=== PATIENT | male | born 1965 | race Caucasian/White ===

== ENCOUNTER 2018-08-21 12:18 | Inpatient (IN) | payer SELFPAY ==
[~2018-08-21] VITALS: Ht 182.9 cm; Wt 68.1 kg
[2018-08-21] VITALS (15 sets, daily range): BP systolic 46–146; BP diastolic 35–111
[~2018-08-21 12:18] MED LIST: ATOR10TA60 PO; LISI2.5T PO; METO-239 PO; PRED20TA PO
[2018-08-21] MEDS ORDERED: IPRATRPIUM/ALBUTEROL 0.5/2.5MG 3 ML NEBU. NEB ONE (12:30)
[2018-08-21] MEDS ORDERED: ASPIRIN CHEWABLE 81 MG TABLET. PO ONE (12:45)
[2018-08-21 12:47] LABS: BASO # 0.1 x10^3/uL (0.0-0.2); BASO % 1 % (0-3); EOS # 0.3 x10^3/uL (0.0-0.7); EOS % 2 % (0-3); LYMPH # 4.6 x10^3/uL (1.0-4.8); LYMPH % 31 % (24-48); MEAN CORPUSCULAR HEMOGLOBIN 31 pg (25-35); MEAN CORPUSCULAR HGB CONC 32 g/dL (31-37); MEAN CORPUSCULAR VOLUME 96 fL (79-100); MONO # 0.6 x10^3/uL (0.0-1.1); MONO % 4 % (0-9); NEUT # 9.2 x10^3uL (1.8-7.7); NEUT % 62 % (31-73); PLATELET COUNT 241 x10^3/uL (140-400); RED BLOOD COUNT 4.91 x10^6/uL (4.30-5.70); RED CELL DISTRIBUTION WIDTH 14.8 % (11.5-14.5); WHITE BLOOD COUNT 14.9 x10^3/uL (4.0-11.0)
[2018-08-21] MEDS ORDERED: PROPOFOL 50 ML IV ONE (12:50)
--- NOTE | 2018-08-21 12:50 | RAD ---
PORTABLE CHEST 1V History: SOA. Comparison with June 27, 2018. The heart size is slightly larger than the prior study. Central vasculature is thickened. There are mixed infiltrates in both lungs, predominantly lung bases. No evidence of pneumothorax. No pleural effusion. IMPRESSION: Development of bilateral pulmonary infiltrates and edema greater in the lung bases. There is also central vascular congestion. Findings may indicate congestive failure. Electronically signed by: Grayson Juárez MD (08/21/2018 12:47 PM) [id number]
[2018-08-21 12:56] LABS: CALCIUM 9.1 mg/dL (8.5-10.1); CREATININE 1.6 mg/dL (0.7-1.3); GFR 45.3; POTASSIUM 3.8 mmol/L (3.5-5.1); PROTHROMBIN TIME PATIENT 13.9 SEC (11.7-14.0)
[2018-08-21] MEDS ORDERED: FUROSEMIDE 40 MG/4 ML VIAL. IVP ONE ×2 (13:00→20:00)
[2018-08-21] MEDS ORDERED: PIPERACILLIN/TAZOBACTAM 3.375 GM in IV NORMAL SALINE 50ML 50 ML IV ONE (13:00)
[2018-08-21] MEDS ORDERED: PROPOFOL 10 MG/ML (20ML) VIAL. IV ONE (13:00)
[2018-08-21 13:02] LABS: ALBUMIN 4.4 g/dL (3.4-5.0); ALBUMIN/GLOBULIN RATIO 1.4 (1.0-1.7); TOTAL BILIRUBIN 0.4 mg/dL (0.2-1.0); TOTAL PROTEIN 7.6 g/dL (6.4-8.2)
--- NOTE | 2018-08-21 13:09 | PHYS DOC ---
Past Medical History Past Medical History: COPD Past Surgical History: No Surgical History Alcohol Use: None Drug Use: None Adult General Chief Complaint Chief Complaint: DYSPNEA/RESPIRATOY DISTRESS HPI HPI Patient is a 53 year old male brought in by eminence with acute shortness of breath a few minutes prior to arrival patient was sweaty and history was limited by the severity of the patient's illness he did briefly deny any chest pain to me is living in a retirement house he was having stool on arrival to the emergency room. Review of Systems Review of Systems Limited by acuity Current Medications Current Medications Current Medications Medications (Trade) Dose Ordered Sig/Alexandra Start Time Stop Time Status Last Admin Dose Admin Albuterol/ Ipratropium (Duoneb) 3 ml 1X ONCE 08/21/18 12:30 08/21/18 12:33 DC Aspirin (Aspirin) 300 mg 1X ONCE 08/21/18 13:15 08/21/18 13:16 Aspirin (Children'S Aspirin) 324 mg 1X ONCE 08/21/18 12:45 08/21/18 12:46 DC Furosemide (Lasix) 40 mg 1X ONCE 08/21/18 13:00 08/21/18 13:01 DC Piperacillin Sod/ Tazobactam Sod 3.375 gm/Sodium Chloride 50 ml @ 100 mls/hr 1X ONCE 08/21/18 13:00 08/21/18 13:29 Propofol (Diprivan) 200 mg 1X ONCE 08/21/18 13:00 08/21/18 13:01 DC Allergies Allergies Allergies Coded Allergies Type Severity Reaction Last Updated Verified No Known Drug Allergies 05/19/18 No Physical Exam Physical Exam Constitutional: Well developed, critically ill sweaty and diaphoretic: Extremities altered mental status HENT: Normocephalic, atraumatic, bilateral external ears normal, oropharynx moist, no oral exudates, nose normal. [] Eyes: PERRLA, EOMI, conjunctiva normal, no discharge. [] Neck: Normal range of motion, no tenderness, supple, no stridor. [] Cardiovascular not tachycardic murmur exam was very challenging for me due to lung findings Lungs & Thorax: Diffuse wheezing tachypnea use of accessory muscles Abdomen: Bowel sounds normal, soft, no tenderness, no masses, no pulsatile masses. [] Skin: Diaphoretic see above Back: Not examined Extremities: Cool extremities Neurologic: Moving all extremities but the mental status is decreased eyes open to voice only does follow commands Psychologic: Unable to assess Current Patient Data Vital Signs Vital Signs Date Time Temp Pulse Resp B/P (MAP) Pulse Ox O2 Delivery O2 Flow Rate FiO2 08/21/18 12:18 97.6 66 31 136/93 (107) 76 Nasal Cannula 6.0 97.6 Lab Values Laboratory Tests Test 08/21/18 12:30 08/21/18 12:33 White Blood Count 14.9 x10^3/uL (4.0-11.0) H Red Blood Count 4.91 x10^6/uL (4.30-5.70) Hemoglobin 15.0 g/dL (13.0-17.5) Hematocrit 47.0 % (39.0-53.0) Mean Corpuscular Volume 96 fL (79-100) Mean Corpuscular Hemoglobin 31 pg (25-35) Mean Corpuscular Hemoglobin Concent 32 g/dL (31-37) Red Cell Distribution Width 14.8 % (11.5-14.5) H Platelet Count 241 x10^3/uL (140-400) Neutrophils (%) (Auto) 62 % (31-73) Lymphocytes (%) (Auto) 31 % (24-48) Monocytes (%) (Auto) 4 % (0-9) Eosinophils (%) (Auto) 2 % (0-3) Basophils (%) (Auto) 1 % (0-3) Neutrophils # (Auto) 9.2 x10^3uL (1.8-7.7) H Lymphocytes # (Auto) 4.6 x10^3/uL (1.0-4.8) Monocytes # (Auto) 0.6 x10^3/uL (0.0-1.1) Eosinophils # (Auto) 0.3 x10^3/uL (0.0-0.7) Basophils # (Auto) 0.1 x10^3/uL (0.0-0.2) Prothrombin Time 13.9 SEC (11.7-14.0) Prothrombin Time INR 1.1 (0.8-1.1) Sodium Level 141 mmol/L (136-145) Potassium Level 3.8 mmol/L (3.5-5.1) Chloride Level 102 mmol/L (98-107) Carbon Dioxide Level 20 mmol/L (21-32) L Anion Gap 19 (6-14) H Blood Urea Nitrogen 17 mg/dL (8-26) Creatinine 1.6 mg/dL (0.7-1.3) H Estimated GFR (Cockcroft-Gault) 45.3 BUN/Creatinine Ratio 11 (6-20) Glucose Level 296 mg/dL (70-99) H Calcium Level 9.1 mg/dL (8.5-10.1) Total Bilirubin 0.4 mg/dL (0.2-1.0) Aspartate Amino Transferase (AST) 40 U/L (15-37) H Alanine Aminotransferase (ALT) 42 U/L (16-63) Alkaline Phosphatase 94 U/L (46-116) Total Protein 7.6 g/dL (6.4-8.2) Albumin 4.4 g/dL (3.4-5.0) Albumin/Globulin Ratio 1.4 (1.0-1.7) POC Troponin I 0.05 ng/ml (<0.08) Laboratory Tests 08/21/18 12:30 Laboratory Tests 08/21/18 12:30 EKG EKG []EKG does show a left bundle branch block is a sinus rhythm I was concerned about the ST segment in V3 that is prominent it probably does not meet SGARBOSSA criteria however otherwise no definite ST elevation when compared with prior EKG from June 28, 2018 the left bundle branch block was also present I did review this EKG approximately 10 minutes after it was done with nurse practitioner Lula from cardiology who also showed it to Dr. Barba Radiology/Procedures Radiology/Procedures [] Impressions: Chest shows bilateral pulmonary edema repeat chest x-ray after intubation does show appropriate placement of the endotracheal tube as well as worsening pulmonary edema Course & Med Decision Making Course & Med Decision Making Critical care time was 55 minutes exclusive of procedures for management of acute pulmonary edema acute hypoxemic respiratory failure metabolic acidosis .Pertinent Labs and Imaging studies reviewed. (See chart for details) []Intubation note: Emergent procedure hypoxemic respiratory failure with severe acidosis etomidate and rocuronium Mac 4 blade grade 2 view confirmed with chest x-ray and end-tidal CO2 In summary this is a 53-year-old male known CHF EF of 40-45% noncompliant also COPD patient who is presenting with acute shortness of breath no chest pain however signs of severe pulmonary edema I suspect also cardiogenic shock due to the long findings the extremity and skin findings as well as the pH severe critical illness overall October from cardiology was at the bedside plan to do a stat echocardiogram TO EVAL THE PT'S KNOWN MRCristóbal ALSO per October given the underlying left bundle it is difficult to assess for acute ischemia so we will cycle troponins up with the patient intensive care unit for diuresis and very close monitoring. I did review with him I was concerned about the possibility of an acute ischemic event and we will be cycle troponins very closely. Lasix rectal aspirin given in the emergency room propofol for sedation after intubation I did give a dose of Zosyn the emergency room I think pneumonia is much less likely based on the clinical symptoms admitted to Dr. Lucas we discussed the case at 1 PM Ervin Disclaimer Ellion Disclaimer This electronic medical record was generated, in whole or in part, using a voice recognition dictation system. Departure Departure Impression: Primary Impression: Pulmonary edema Disposition: ADMITTED INPATIENT Admitting Physician: Other Condition: CRITICAL Referrals: NO PCP (PCP) PRIETO TALLEY MD Aug 21, 2018 13:09
[2018-08-21] MEDS ORDERED: ASPIRIN RECTAL 300 MG SUPP. PR ONE (13:15)
[2018-08-21] MEDS ORDERED: ACETAMINOPHEN 325 MG TABLET. PO PRN (13:15)
[2018-08-21] MEDS ORDERED: 0.9 % SODIUM CHLORIDE 10 ML DISP.SYRIN. IV PRN (13:15)
[2018-08-21] MEDS ORDERED: MORPHINE SULFATE 2 MG/ML VIAL. IV PRN ×2 (13:15→14:30)
[2018-08-21] MEDS ORDERED: LACTULOSE 20 GM/30 ML SOLUTION. PO PRN (13:15)
[2018-08-21] MEDS ORDERED: HYDROcodone/APAP 5/325MG 1 TAB TABLET PO PRN (13:15)
[2018-08-21] MEDS ORDERED: ONDANSETRON PF 4 MG/2 ML VIAL. IV PRN (13:15)
--- NOTE | 2018-08-21 13:24 | PDOC2 ---
CARDIAC CONSULT DATE OF CONSULT Date of Consult DATE: 08/21/18 TIME: 12:59 REASON FOR CONSULT Reason for Consult: CHF REFERRING PHYSICIAN Referring Physician: Suze SOURCE Source: Chart review HISTORY OF PRESENT ILLNESS HISTORY OF PRESENT ILLNESS This is a 53 yo male admitted fo complains of shortness of breath. He lives in a [facility] house and it was unclear if he or somebody else called for help but upon arrival he was significantly SOA and had accidental BM. He was tachypneic and was struggling to breath prompting intubation. He is known for heavy tobacco use, cardiomyopathy, severe MR and COPD. This is the third time he has been admitted to [facility] this year and all those times including today he has been noted with failure to comply with treatment regimen and has not been taking the medications recommended previously. There was no noted complains of chest pain and no significant changes to his EKG by comparison. PAST MEDICAL HISTORY Cardiovascular: CHF, HTN, Hyperlipidemia, Other (Cardiomyopathy; ) Pulmonary: COPD CENTRAL NERVOUS SYSTEM: Other (No pertinent history) GI: No pertinent hx Heme/Onc: No pertinent hx Hepatobiliary: No pertinent hx Psych: No pertinent hx Musculoskeletal: Osteoarthritis Rheumatologic: No pertinent hx ENT: No pertinent hx Renal/: No pertinent hx Endocrine: No pertinent hx Dermatology: No pertinent hx PAST SURGICAL HISTORY Past Surgical History: No pertinent history FAMILY HISTORY Family History noncontributory SOCIAL HISTORY Smoke: 2 packs per day ALCOHOL: occassional Drugs: None Lives: Alone ([facility] house) ALLERGIES ALLERGIES: Coded Allergies: No Known Drug Allergies (Unverified , 05/19/18) ROS Review of System unreliable, intubated PHYSICAL EXAM General: Other (sedated) HEENT: Atraumatic, Mucous membr. moist/pink Lungs: Other (basilar crackles, diminished, intubated, vent) Heart: Regular rate (SR wth LBBB with first degree AV block), Other (distnat heart sounds 3/6 systolic apical murmur; S3) Abdomen: Soft, No tenderness Extremities: No cyanosis, No edema Skin: No breakdown, No significant lesion, Other (tatoos) Neuro: Sensation intact Psych/Mental Status: Other (sedated) MUSCULOSKELETAL: Osteoarthritic changes both hands LABS Lab: Laboratory Tests Test 08/21/18 12:30 08/21/18 12:33 White Blood Count 14.9 x10^3/uL (4.0-11.0) Red Blood Count 4.91 x10^6/uL (4.30-5.70) Hemoglobin 15.0 g/dL (13.0-17.5) Hematocrit 47.0 % (39.0-53.0) Mean Corpuscular Volume 96 fL (79-100) Mean Corpuscular Hemoglobin 31 pg (25-35) Mean Corpuscular Hemoglobin Concent 32 g/dL (31-37) Red Cell Distribution Width 14.8 % (11.5-14.5) Platelet Count 241 x10^3/uL (140-400) Neutrophils (%) (Auto) 62 % (31-73) Lymphocytes (%) (Auto) 31 % (24-48) Monocytes (%) (Auto) 4 % (0-9) Eosinophils (%) (Auto) 2 % (0-3) Basophils (%) (Auto) 1 % (0-3) Neutrophils # (Auto) 9.2 x10^3uL (1.8-7.7) Lymphocytes # (Auto) 4.6 x10^3/uL (1.0-4.8) Monocytes # (Auto) 0.6 x10^3/uL (0.0-1.1) Eosinophils # (Auto) 0.3 x10^3/uL (0.0-0.7) Basophils # (Auto) 0.1 x10^3/uL (0.0-0.2) Prothrombin Time 13.9 SEC (11.7-14.0) Prothromb Time International Ratio 1.1 (0.8-1.1) Sodium Level 141 mmol/L (136-145) Potassium Level 3.8 mmol/L (3.5-5.1) Chloride Level 102 mmol/L (98-107) Carbon Dioxide Level 20 mmol/L (21-32) Anion Gap 19 (6-14) Blood Urea Nitrogen 17 mg/dL (8-26) Creatinine 1.6 mg/dL (0.7-1.3) Estimated GFR (Cockcroft-Gault) 45.3 BUN/Creatinine Ratio 11 (6-20) Glucose Level 296 mg/dL (70-99) Calcium Level 9.1 mg/dL (8.5-10.1) Bedside Troponin I 0.05 ng/ml (<0.08) ECHOCARDIOGRAM ECHOCARDIOGRAM <Conclusion> The Ejection Fraction is 40-45%. The systolic function is mildly impaired. Septal motion consistent with conduction abnormality, otherwise there is mild global hypokinesis. Doppler and Color-flow revealed moderate to severe mitral regurgitation. Doppler and Color Flow revealed moderate tricuspid regurgitation with an estimated PAP of 53 mmHg. The IVC is dilated and collapses <50% with inspiration. DATE: 05/21/18 1322 ASSESSMENT/PLAN ASSESSMENT/PLAN 1. Acute on chronic respiratory failure with acute CHF and AECOPD 2. Moderate to Severe MR: prior TTE 3. Cardiomyopathy: last EF noted at 40% 4. Acute on chronic systolic CHF: multifactorial with noncompliance, MR and COPD. 5. Heavy tobaccoism 6. HTN: controlled 7. Severe noncompliance. Recommendations 1. Consult pulmonary, currently intubated with vent 2. Trend troponin, lipids. 3. Ischemic workup when more stable. 4. TTE, A1C, pro NT BNP, Mg. 5. ASA. lasix therapy. 6. Smoking cessation JAZMINE BLEVINS APRN Aug 21, 2018 13:24
--- NOTE | 2018-08-21 13:25 | RAD ---
CHEST AP ONLY History: intubation. Endotracheal tube has been placed with tip 5.5 cm above the rios. Endogastric tube is seen extending toward the left upper quadrant, tip not included. There has been progressive worsening of infiltrates in both lungs since the prior study of 12:33 PM. Cardiac silhouette is stable. Lung apices not completely included. No evidence of pneumothorax. No pleural effusion. Ill-definition of central pulmonary vasculature persists. IMPRESSION: 1. Endotracheal tube has been placed with tip 5.5 cm above the rios. 2. Progressive worsening of infiltrates/edema in both lungs. Electronically signed by: Grayson Juárez MD (08/21/2018 1:22 PM) [facility]
[2018-08-21] MEDS: LISINOPRIL 5 MG TABLET. PO SCH (14:00)
[2018-08-21] MEDS ORDERED: ROCURONIUM 50 MG/5 ML VIAL. ONE (14:01)
[2018-08-21] MEDS ORDERED: ETOMIDATE 20 MG/10 ML VIAL. IV ONE (14:01)
[2018-08-21 14:30] LABS: PCO2 ABG 45 mmHg (35-46)
[2018-08-21] MEDS ORDERED: POLYVINYL ALCOHOL 1.4% OPHTH SOLUTION 15ML BOTTLE. OU PRN (14:30)
[2018-08-21] MEDS ORDERED: fentaNYL PF VIAL 100 MCG/2 ML VIAL IV PRN ×2 (14:30)
[2018-08-21] MEDS ORDERED: PROPOFOL 100 ML IV PRN (14:30)
[2018-08-21] MEDS ORDERED: MORPHINE SULFATE 4 MG/ML VIAL. IV PRN (14:30)
[2018-08-21 14:31] LABS: BASE EXCESS ABG -16 mmol/L (-3-3); FIO2 ABG 100%; HCO3 ABG 14 mmol/L (21-28); PO2 ABG 76 mmHg (75-108); SAT O2 ABG 90 % (92-99)
--- NOTE | 2018-08-21 14:36 | EKG ---
[facility] [address] [place] [address] Test Date: 2018-08-21 Test Time: 12:23:31 Pat Name: RICHIE VALLADARES Department: Room: 112 1 Gender: M Hand Blocker: : 1965 Requested By: PRIETO TALLEY Order Number: [id number] Reading MD: Stanislav Mendes MD Measurements Intervals Gravelly Rate: 82 P: [place]: QRS: 8 QRSD: 170 T: 147 QT: 418 QTc: 491 Interpretive Statements SINUS RHYTHM LBBB Electronically Signed On 08-25-2018 14:57:05 CDT by Stanislav Mendes MD
--- NOTE | 2018-08-21 14:37 | PDOC1 ---
History and Physical Date of Admission Date of Admission 08/21/2018 Identification/Chief Complaint Chief Complaint I cannot breathe Problems: (1) Acute hypoxemic respiratory failure (2) COPD (chronic obstructive pulmonary disease) Source Source: Chart review, Unable to obtain due to (patient is currently intubated) History of Present Illness History of Present Illness History and physical gathered from review of his chart and report from ER physician. Patient is currently on sedation and on mechanical ventilation. Patient is a 53-year-old gentleman with past medical history of COPD and mitral regurgitation with chronic systolic dysfunction recent ejection fraction was recorded at 40% on his last admission June of this year. The patient came to the emergency department with shortness of breath, the patient's history is was very limited due to the acuity of his presentation. He referred to the emergency department physician that he felt sweaty and that he could not catch his breath. The patient has history of [place] as per enrollment consultant and he has not follow-up due to financial constraints. The patient apparently has not been adherent to his medications which was reported to the emergency department nurses prior to his intubation. The patient is currently being seen in the ICU he is sedated and on mechanical ventilation. He does not seem to be in acute distress. He received diuresis in the emergency department after his chest x- ray showed evidence of pulmonary edema which probably explain the acuity of his presentation. We'll continue to monitor the patient will consult cardiology and pulmonary in order to help us with the care of the patient Past Medical History Cardiovascular: CHF, HTN, Hyperlipidemia, Other (Cardiomyopathy; ) Pulmonary: COPD CENTRAL NERVOUS SYSTEM: Other (No pertinent history) GI: No pertinent hx Heme/Onc: No pertinent hx Hepatobiliary: No pertinent hx Psych: No pertinent hx Rheumatologic: No pertinent hx ENT: No pertinent hx Renal/: No pertinent hx Endocrine: No pertinent hx Dermatology: No pertinent hx Past Surgical History Past Surgical History: No pertinent history Family History Family History: Hypertension Social History Smoke: 2 packs per day ALCOHOL: occassional Drugs: None Current Problem List Problem List Problems Medical Problems: (1) Pulmonary edema Status: Acute Current Medications Current Medications Current Medications Medications (Trade) Dose Ordered Sig/Alexandra Start Time Stop Time Status Last Admin Dose Admin Acetaminophen (Tylenol) 650 mg PRN Q6HRS PRN 08/21/18 13:15 Acetaminophen/ Hydrocodone Bitart (Lortab 5/325) 1 tab PRN Q4HRS PRN 08/21/18 13:15 Albuterol/ Ipratropium (Duoneb) 3 ml 1X ONCE 08/21/18 12:30 08/21/18 12:33 DC Artificial Tears (Artificial Tears) 1 drop PRN Q1HR PRN 08/21/18 14:30 Aspirin (Aspirin) 300 mg 1X ONCE 08/21/18 13:15 08/21/18 13:16 DC 08/21/18 13:09 300 MG Aspirin (Children'S Aspirin) 324 mg 1X ONCE 08/21/18 12:45 08/21/18 12:46 DC Atorvastatin Calcium (Lipitor) 10 mg QHS 08/21/18 21:00 Chlorhexidine Gluconate (Peridex) 15 ml BID 08/21/18 21:00 Etomidate (Amidate) 20 mg STK-MED ONCE 08/21/18 14:01 08/21/18 14:02 DC Famotidine (Pepcid Vial) 20 mg BID 08/21/18 21:00 Fentanyl Citrate (Fentanyl 2ml Vial) 50 mcg PRN Q1HR PRN 08/21/18 14:30 Furosemide (Lasix) 40 mg 1X ONCE 08/21/18 20:00 08/21/18 20:01 Heparin Sodium (Porcine) (Heparin Sodium) 5,000 unit Q12HR 08/21/18 14:00 Info (Icu Electrolyte Protocol) 1 ea DAILY 08/22/18 09:00 Lactulose (Lactulose) 20 gm PRN Q12HR PRN 08/21/18 13:15 Lisinopril (Prinivil) 2.5 mg DAILY 08/21/18 14:00 Lorazepam (Ativan) 0.5 mg PRN Q6HRS PRN 08/21/18 13:15 Metoprolol Succinate (Toprol Xl) 25 mg DAILY 08/22/18 09:00 Morphine Sulfate (Morphine Sulfate) 4 mg PRN Q1HR PRN 08/21/18 14:30 Ondansetron HCl (Zofran) 4 mg PRN Q6HRS PRN 08/21/18 13:15 Piperacillin Sod/ Tazobactam Sod 3.375 gm/Sodium Chloride 50 ml @ 100 mls/hr 1X ONCE 08/21/18 13:00 08/21/18 13:29 DC 08/21/18 13:07 100 MLS/HR Propofol 100 ml @ 2.205 mls/ hr CONT PRN 08/21/18 14:30 Propofol (Diprivan) 200 mg 1X ONCE 08/21/18 13:00 08/21/18 13:01 DC 08/21/18 13:00 200 MG Rocuronium [place] (Zemuron) 50 mg STK-MED ONCE 08/21/18 14:01 08/21/18 14:02 DC Sodium Chloride (Normal Saline Flush) 3 ml QSHIFT PRN 08/21/18 13:15 Allergies Allergies Allergies Coded Allergies Type Severity Reaction Last Updated Verified No Known Drug Allergies 05/19/18 No ROS Review of System Unable to obtain due to sedation Physical Exam Physical Exam GEN.: No apparent distress. Sedated and on mechanical ventilation HEENT: Head is normocephalic, atraumatic NECK: Supple. LUNGS: Clear to auscultation. Mild crackles over the lower lung beyer HEART: RRR, S1, S2 present. Peripheral pulses intact ABDOMEN: Soft, nontender. Positive bowel sounds. EXTREMITIES: Without any cyanosis. NEUROLOGIC: Patient currently sedated he is moving all extremities PSYCHIATRIC: Unable to assess due to sedation SKIN: No ulcerations Vitals Vitals Vital Signs Date Time Temp Pulse Resp B/P (MAP) Pulse Ox O2 Delivery O2 Flow Rate FiO2 08/21/18 14:00 Ventilator 08/21/18 12:18 97.6 66 31 136/93 (107) 76 6.0 97.6 Labs Labs Laboratory Tests Test 08/21/18 12:30 08/21/18 12:33 White Blood Count 14.9 x10^3/uL (4.0-11.0) Red Blood Count 4.91 x10^6/uL (4.30-5.70) Hemoglobin 15.0 g/dL (13.0-17.5) Hematocrit 47.0 % (39.0-53.0) Mean Corpuscular Volume 96 fL (79-100) Mean Corpuscular Hemoglobin 31 pg (25-35) Mean Corpuscular Hemoglobin Concent 32 g/dL (31-37) Red Cell Distribution Width 14.8 % (11.5-14.5) Platelet Count 241 x10^3/uL (140-400) Neutrophils (%) (Auto) 62 % (31-73) Lymphocytes (%) (Auto) 31 % (24-48) Monocytes (%) (Auto) 4 % (0-9) Eosinophils (%) (Auto) 2 % (0-3) Basophils (%) (Auto) 1 % (0-3) Neutrophils # (Auto) 9.2 x10^3uL (1.8-7.7) Lymphocytes # (Auto) 4.6 x10^3/uL (1.0-4.8) Monocytes # (Auto) 0.6 x10^3/uL (0.0-1.1) Eosinophils # (Auto) 0.3 x10^3/uL (0.0-0.7) Basophils # (Auto) 0.1 x10^3/uL (0.0-0.2) Prothrombin Time 13.9 SEC (11.7-14.0) Prothromb Time International Ratio 1.1 (0.8-1.1) Sodium Level 141 mmol/L (136-145) Potassium Level 3.8 mmol/L (3.5-5.1) Chloride Level 102 mmol/L (98-107) Carbon Dioxide Level 20 mmol/L (21-32) Anion Gap 19 (6-14) Blood Urea Nitrogen 17 mg/dL (8-26) Creatinine 1.6 mg/dL (0.7-1.3) Estimated GFR (Cockcroft-Gault) 45.3 BUN/Creatinine Ratio 11 (6-20) Glucose Level 296 mg/dL (70-99) Lactic Acid Level 8.1 mmol/L (0.4-2.0) Calcium Level 9.1 mg/dL (8.5-10.1) Magnesium Level 2.5 mg/dL (1.8-2.4) Total Bilirubin 0.4 mg/dL (0.2-1.0) Aspartate Amino Transf (AST/SGOT) 40 U/L (15-37) Alanine Aminotransferase (ALT/SGPT) 42 U/L (16-63) Alkaline Phosphatase 94 U/L (46-116) Troponin I Quantitative 0.065 ng/mL (0.000-0.055) WY-Lkm-C-Type Natriuretic Peptide 3115 pg/mL (0-124) Total Protein 7.6 g/dL (6.4-8.2) Albumin 4.4 g/dL (3.4-5.0) Albumin/Globulin Ratio 1.4 (1.0-1.7) Bedside Troponin I 0.05 ng/ml (<0.08) Laboratory Tests Test 08/21/18 12:30 08/21/18 12:33 White Blood Count 14.9 x10^3/uL (4.0-11.0) Red Blood Count 4.91 x10^6/uL (4.30-5.70) Hemoglobin 15.0 g/dL (13.0-17.5) Hematocrit 47.0 % (39.0-53.0) Mean Corpuscular Volume 96 fL (79-100) Mean Corpuscular Hemoglobin 31 pg (25-35) Mean Corpuscular Hemoglobin Concent 32 g/dL (31-37) Red Cell Distribution Width 14.8 % (11.5-14.5) Platelet Count 241 x10^3/uL (140-400) Neutrophils (%) (Auto) 62 % (31-73) Lymphocytes (%) (Auto) 31 % (24-48) Monocytes (%) (Auto) 4 % (0-9) Eosinophils (%) (Auto) 2 % (0-3) Basophils (%) (Auto) 1 % (0-3) Neutrophils # (Auto) 9.2 x10^3uL (1.8-7.7) Lymphocytes # (Auto) 4.6 x10^3/uL (1.0-4.8) Monocytes # (Auto) 0.6 x10^3/uL (0.0-1.1) Eosinophils # (Auto) 0.3 x10^3/uL (0.0-0.7) Basophils # (Auto) 0.1 x10^3/uL (0.0-0.2) Prothrombin Time 13.9 SEC (11.7-14.0) Prothromb Time International Ratio 1.1 (0.8-1.1) Sodium Level 141 mmol/L (136-145) Potassium Level 3.8 mmol/L (3.5-5.1) Chloride Level 102 mmol/L (98-107) Carbon Dioxide Level 20 mmol/L (21-32) Anion Gap 19 (6-14) Blood Urea Nitrogen 17 mg/dL (8-26) Creatinine 1.6 mg/dL (0.7-1.3) Estimated GFR (Cockcroft-Gault) 45.3 BUN/Creatinine Ratio 11 (6-20) Glucose Level 296 mg/dL (70-99) Lactic Acid Level 8.1 mmol/L (0.4-2.0) Calcium Level 9.1 mg/dL (8.5-10.1) Magnesium Level 2.5 mg/dL (1.8-2.4) Total Bilirubin 0.4 mg/dL (0.2-1.0) Aspartate Amino Transf (AST/SGOT) 40 U/L (15-37) Alanine Aminotransferase (ALT/SGPT) 42 U/L (16-63) Alkaline Phosphatase 94 U/L (46-116) Troponin I Quantitative 0.065 ng/mL (0.000-0.055) DP-Bcv-Z-Type Natriuretic Peptide 3115 pg/mL (0-124) Total Protein 7.6 g/dL (6.4-8.2) Albumin 4.4 g/dL (3.4-5.0) Albumin/Globulin Ratio 1.4 (1.0-1.7) Bedside Troponin I 0.05 ng/ml (<0.08) VTE Prophylaxis Ordered VTE Prophylaxis Devices: No VTE Pharmacological Prophylaxi: Yes Assessment/Plan Assessment/Plan Acute hypoxemic respiratory failure secondary to pulmonary edema Mildly elevated troponin most likely secondary to demand ischemia Type II non-STEMI, evidence of old left bundle branch block does not seem to be an acute coronary syndrome Acute on chronic COPD exacerbation tobacco abuse Tobacco abuse Nonadherence to treatment plan Acute on chronic congestive heart failure with systolic dysfunction last EF recorded at 40-45% Moderate to severe mitral regurgitation Plan Admit to ICU Ventilatory support Continue with sedation Consult cardiology Consult pulmonology Repeat labs in the a.m. Further recommendations based on the clinical course DVT prophylaxis with heparin POP PARKS MD Aug 21, 2018 14:37
[2018-08-21] MEDS: MIDAZOLAM 100mg/100ml NS BAG 100 ML IV PRN (15:54)
[2018-08-21] MEDS: NOREPINEPHRIN 8MG/250ML PREMIX 250 ML IV PRN ×2 (15:55→23:02)
[2018-08-21 16:15] LABS: BASE EXCESS ABG -3 mmol/L (-3-3); HCO3 ABG 23 mmol/L (21-28); PCO2 ABG 43 mmHg (35-46); PO2 ABG 362 mmHg (75-108); SAT O2 ABG 100 % (92-99)
[2018-08-21 16:41] LABS: FIO2 ABG 100
--- NOTE | 2018-08-21 16:56 | CARD ---
MR#: [id number] Date of Study: 08/21/2018 Ordering Physician: PRIETO TALLEY, Referring Physician: POP PARKS Tech: Poonam Chisholm APPROVED REPORT EXAM: Two-dimensional and M-mode echocardiogram with Doppler and color Doppler. Other Information Quality : FairHR: 138bpm INDICATION Respiratory Failure 2D DIMENSIONS Left Atrium(2D)4.6 (1.6-4.0cm)IVSd1.4 (0.7-1.1cm) Aortic Root(2D)3.1 (2.0-3.7cm)LVDd5.2 (3.9-5.9cm) LVOT Diameter2.3 (1.8-2.4cm)PWd1.2 (0.7-1.1cm) LVDs3.5 (2.5-4.0cm)FS (%) 32.7 % SV78.0 ml Aortic Valve AoV Peak Mark.121.1cm/sAoV VTI14.8cm AO Peak GR.5.9mmHgLVOT VTI 12.11cm AO Mean GR.2mmHg Mitral Valve MV E Txhocimw93.9cm/sMV E Peak Gr.123mmHg MV DECEL [id number] A Owdffext55.1cm/s E/A Ratio1.8 TDI Lateral E' P. V3.85cm/sMedial E' P. V3.18cm/s E/Lateral E'21.0E/Medial E'25.4 Tricuspid Valve TR P. Mgsaoyun326og/sRAP [id number] TR Peak Gr.[id number] LEFT VENTRICLE Technically difficult study with the patient on a ventilator. The Left Ventricle is borderline dilate d. There is mild concentric left ventricular hypertrophy. The left ventricular systolic function is m oderately decreased. The Ejection Fraction is 35-40%. There is global hypokinesis of the left ventric le. Transmitral Doppler flow pattern is Grade II-pseudonormal filling dynamics. RIGHT VENTRICLE The right ventricle is borderline dilated. There is normal right ventricular wall thickness. The righ t ventricular systolic function is normal. ATRIA The left atrium is moderately dilated. The right atrium size is normal. The interatrial septum is int act with no evidence for an atrial septal defect or patent foramen ovale as noted on 2-D or Doppler i maging. AORTIC VALVE The aortic valve is normal in structure and function. Doppler and Color Flow revealed trace aortic re gurgitation. There is no significant aortic valvular stenosis. MITRAL VALVE The mitral valve is normal in structure and function. There is no evidence of mitral valve prolapse. There is no mitral valve stenosis. Doppler and Color-flow revealed moderate mitral regurgitation. TRICUSPID VALVE The tricuspid valve is normal in structure and function. Doppler and Color Flow revealed mild tricusp id regurgitation with an estimated PAP of 39 mmHg. There is no tricuspid valve stenosis. PULMONIC VALVE The pulmonary valve is normal in structure and function. Doppler and Color Flow revealed no pulmonic valvular regurgitation. GREAT VESSELS The aortic root is normal in size. The IVC is normal in size and collapses <50% with inspiration. PERICARDIAL EFFUSION There is no evidence of significant pericardial effusion. Critical Notification Critical Value: No <Conclusion> Technically difficult study with the patient on a ventilator. The Left Ventricle is borderline dilated. The left ventricular systolic function is moderately decreased. The Ejection Fraction is 35-40%. There is global hypokinesis of the left ventricle. There is mild concentric left ventricular hypertrophy. There is no significant aortic valvular stenosis. Doppler and Color Flow revealed trace aortic regurgitation. Doppler and Color-flow revealed moderate mitral regurgitation. Doppler and Color Flow revealed mild tricuspid regurgitation with an estimated PAP of 39 mmHg. Signed by : Al Young MD Electronically Approved : 08/21/2018 16:55:42
--- NOTE | 2018-08-21 17:41 | NUR ---
Patient admitted at 1410. Room 112. Intubated, Dr. Barba at bedside. No new orders received from cardiology. RN called Dr. Beck to notify of consult. Order received for Solumedrol, Fentanyl SWING TENDER, Duoneb. Patient started on Levophed due to hypotension. Propofol gtt stopped, Versed gtt started. Patient has no family that RN is aware of, No one at bedside. Patient sedated, unable to answer admission questions.
[2018-08-21] MEDS: HEPARIN for SUB-Q USE 5,000 UNIT/ML VIAL. SQ SCH ×2 (17:43→20:49)
[2018-08-21] MEDS: IPRATRPIUM/ALBUTEROL 0.5/2.5MG 3 ML NEBU. NEB SCH (20:16)
[2018-08-21] MEDS: methylPREDNISolone SOD SUCC PF 40 MG/ML VIAL. IV SCH (20:48)
[2018-08-21] MEDS: ATORVASTATIN CALCIUM 10 MG TABLET. PO SCH (20:49)
[2018-08-21] MEDS: FAMOTIDINE 20 MG/2 ML VIAL IVP SCH (20:49)
[2018-08-21] MEDS ORDERED: CHLORHEXIDINE 0.12% 15 ML MOUTHWASH. MM SCH (21:00)
[2018-08-21 22:10] LABS: HEMOGLOBIN A1C 5.4 % (4.8-5.6)
[2018-08-22] VITALS (32 sets, daily range): BP systolic 92–127; BP diastolic 54–79
[2018-08-22] MEDS: MIDAZOLAM 100mg/100ml NS BAG 100 ML IV PRN ×2 (00:43→17:55)
[2018-08-22 04:02] LABS: BASO % 0 % (0-3); EOS % 0 % (0-3); HEMOGLOBIN 14.8 g/dL (13.0-17.5); LYMPH # 0.6 x10^3/uL (1.0-4.8); LYMPH % 4 % (24-48); MEAN CORPUSCULAR HEMOGLOBIN 30 pg (25-35); MEAN CORPUSCULAR HGB CONC 33 g/dL (31-37); MEAN CORPUSCULAR VOLUME 92 fL (79-100); MONO # 0.2 x10^3/uL (0.0-1.1); MONO % 1 % (0-9); NEUT % 95 % (31-73); PLATELET COUNT 240 x10^3/uL (140-400); RED BLOOD COUNT 4.89 x10^6/uL (4.30-5.70); RED CELL DISTRIBUTION WIDTH 13.8 % (11.5-14.5); WHITE BLOOD COUNT 13.8 x10^3/uL (4.0-11.0)
[2018-08-22 04:13] LABS: CALCIUM 8.9 mg/dL (8.5-10.1); GFR 77.9; POTASSIUM 3.7 mmol/L (3.5-5.1)
[2018-08-22 05:51] LABS: % BANDS 3 % (0-9); % LYMPHS 5 % (24-48); % MONOS 2 % (0-10); % SEGS 90 % (35-66)
[2018-08-22 05:52] LABS: PLT ESTIMATE ADEQUATE (ADEQUATE)
--- NOTE | 2018-08-22 06:49 | PDOC ---
Provider Note Provider Note [id number] acute resp fail acute sys chf ae of copd see orders. PEGGY ESTRADA MD Aug 22, 2018 06:49
[2018-08-22] MEDS: LISINOPRIL 5 MG TABLET. PO SCH (07:40)
[2018-08-22] MEDS: METOPROLOL SUCC 24HR ER 25 MG TAB.ER.24H. PO SCH (07:41)
--- NOTE | 2018-08-22 07:44 | CONS ---
DATE OF CONSULTATION: 08/22/2018 REASON FOR CONSULTATION: I was asked to see this 53-year-old gentleman for acute respiratory failure. HISTORY OF PRESENT ILLNESS: He is currently on the ventilator and he is not able to give me any information. All of the information was obtained from chart and nursing staff. He has history of COPD, mitral regurgitation and cardiomyopathy. He came to the Emergency Room with shortness of breath. He was intubated in the Emergency Room. He had a large amount of frothy secretion. Lasix was given. Currently, he is on ventilator assist controlled rate of 20, tidal volume 500, PEEP of 5, FiO2 of 40%. He has a small amount of ET tube secretion. He is on Levophed. PAST MEDICAL HISTORY: Cardiomyopathy, CHF, hypertension, and COPD. ALLERGIES: No known drug allergies. MEDICATIONS: Currently he is on Lasix, Solu-Medrol 40 mg IV every 12, Lipitor, Pepcid, DuoNeb, Levophed, fentanyl and Versed drip. SOCIAL HISTORY: Significant history of smoking, details are not known. FAMILY HISTORY: Hypertension per chart. REVIEW OF SYSTEMS: As mentioned as above. I have discussed the patient with RN. Other systems otherwise negative. PHYSICAL EXAMINATION: GENERAL: He is on ventilator and sedated. VITAL SIGNS: His O2 saturation is 99%, respiratory rate 20, heart rate 100, blood pressure 100/60, temperature 99.9. HEENT: Normocephalic, atraumatic. Pupils equal, round, reactive to light. He is orally intubated. Nose is clear. NECK: Positive JVD. No lymphadenopathy or thyromegaly. CARDIOVASCULAR: Regular rate and rhythm. PMI is nondisplaced. CHEST: Inspection is normal. LUNGS: There are bibasilar crackles, dullness at the bases. ABDOMEN: Soft. Bowel sounds are good. There is no mass. EXTREMITIES: There is no edema. LYMPHATICS: There is no lymphadenopathy. NEUROLOGIC: He is on the ventilator, sedated. SKIN: Warm. LABORATORY AND DIAGNOSTIC DATA: I reviewed the following lab data: Chest x-ray shows bilateral infiltrate, ET tube is in good position, COPD changes. ABG on arrival PH 7.1, pCO2 of 45, pO2 76 and on the ventilator yesterday pH 7.34, pCO2 of 43, pO2 of 362 on FiO2 of 100%. Sodium 142, potassium 3.7, chloride 103, CO2 of 25, glucose 140, BUN 21, creatinine 1. Lactic acid on admission 8.1, now 1.5. Troponin 0.065, last one was 0.045. BNP 3115. WBC 13.8, hemoglobin 14.8, platelet 240. IMPRESSION: 1. Acute hypoxemic respiratory failure, multifactorial in etiology including acute systolic congestive heart failure, acute bronchitis versus pneumonia, acute exacerbation of chronic obstructive pulmonary disease versus others. 2. Abnormal chest x-ray. 3. Acute systolic congestive heart failure. 4. Acute exacerbation of chronic obstructive pulmonary disease. 5. Tobacco habituation. 6. Hypotension, questionable etiology, could be septic versus cardiogenic versus others. 7. Lactic acidosis, resolved. PLAN AND RECOMMENDATIONS: 1. Continue ventilator support. Vent setting was reviewed. 2. Titrate FiO2 to keep O2 saturation 94%. 3. Keep intake less than output. Agree with Lasix. Monitor creatinine and potassium. 4. Continue antibiotic. 5. Continue Solu-Medrol 40 mg IV every 12. 6. Bronchodilator. 7. Start Lovenox for DVT prophylaxis. 8. Pepcid for stress ulcer prophylaxis. 9. Review ABG and portable chest x-ray. 10. Pressors to keep mean arterial pressure of 65. 11. Check procalcitonin. nasal swab for influenza A and B. 12. Follow up blood cultures. Send the sputum for Gram stain and culture. 13. Monitor respiratory status very closely. 14. The findings and recommendations were discussed with RN. Thank you very much for allowing me to participate in care of this very nice gentleman. PEGGY ESTRADA M.D. [facility] SHAH/jh JOB#: [id number] / [id number] CRISTINE
[2018-08-22] MEDS: NOREPINEPHRIN 8MG/250ML PREMIX 250 ML IV PRN ×2 (08:25→20:55)
--- NOTE | 2018-08-22 08:30 | RAD ---
AP view of the chest. Comparison: Chest radiograph dated 08/21/2018. Indication: MECHANICAL VENTILATION Findings: The patient is slightly rotated to the right. Unchanged endotracheal tube. The enteric tube is likely unchanged, although it was much more conspicuous on prior exam. Unchanged lung volume. Improvement in bilateral perihilar predominant opacities. No new consolidation. Unchanged pulmonary vasculature. No pleural effusion or pneumothorax. The cardiomediastinal silhouette and great vessels are unchanged. IMPRESSION: 1. Improvement in bilateral perihilar predominant opacities. No new consolidation. 2. Life support devices as above. Electronically signed by: Seamus Kumar MD (08/22/2018 8:27 AM) [facility]
[2018-08-22] MEDS: IPRATRPIUM/ALBUTEROL 0.5/2.5MG 3 ML NEBU. NEB SCH ×4 (08:48→20:28)
[2018-08-22] MEDS: FUROSEMIDE 40 MG/4 ML VIAL. IVP SCH (08:49)
[2018-08-22] MEDS: FAMOTIDINE 20 MG/2 ML VIAL IVP SCH ×2 (08:49→20:55)
[2018-08-22] MEDS: methylPREDNISolone SOD SUCC PF 40 MG/ML VIAL. IV SCH ×2 (08:50→20:55)
[2018-08-22] MEDS: ENOXAPARIN 40 MG/0.4 ML SYRINGE. SQ SCH (08:50)
[2018-08-22] MEDS: PIPERACILLIN/TAZOBACTAM 3.375 GM in IV NORMAL SALINE 50ML 50 ML IV SCH ×3 (08:51→17:27)
[2018-08-22] MEDS: ELECTROLYTE (ICU) PROTOCOL. MC SCH (09:00)
[2018-08-22 09:13] LABS: BASE EXCESS ABG -2 mmol/L (-3-3); HCO3 ABG 23 mmol/L (21-28); PCO2 ABG 39 mmHg (35-46); PO2 ABG 108 mmHg (75-108); SAT O2 ABG 98 % (92-99)
[2018-08-22 09:15] LABS: FIO2 ABG 40
--- NOTE | 2018-08-22 10:12 | NUR ---
FACULTY CO-SIGN I have reviewed the documentation by skilled nursing facilities professional: Addendum: 08/22/18 at 1012 by MONI THORPE RN Amended: Links added.
[2018-08-22 10:39] LABS: INFLUENZA A PATIENT NEGATIVE (NEGATIVE); INFLUENZA B PATIENT NEGATIVE (NEGATIVE)
--- NOTE | 2018-08-22 10:53 | PDOC ---
PROGRESS NOTES Chief Complaint Chief Complaint Acute hypoxemic respiratory failure secondary to pulmonary edema Mildly elevated troponin most likely secondary to demand ischemia Type II non-STEMI, evidence of old left bundle branch block does not seem to be an acute coronary syndrome Acute on chronic COPD exacerbation tobacco abuse Tobacco abuse Nonadherence to treatment plan Acute on chronic congestive heart failure with systolic dysfunction last EF recorded at 40-45% Moderate to severe mitral regurgitation Plan Ventilatory support Continue with sedation iAcute hypoxemic respiratory failure secondary to pulmonary edema Mildly elevated troponin most likely secondary to demand ischemia Type II non-STEMI, evidence of old left bundle branch block does not seem to be an acute coronary syndrome Acute on chronic COPD exacerbation tobacco abuse Tobacco abuse Nonadherence to treatment plan Acute on chronic congestive heart failure with systolic dysfunction last EF recorded at 40-45% Moderate to severe mitral regurgitation Plan Admit to ICU continue with diuresis Ventilatory support Continue with sedation follow cardiology recommendations Consult pulmonology Repeat labs in the a.m. Further recommendations based on the clinical course DVT prophylaxis with heparin Pulmonology recommendations greatly appreciated Vitals Vitals Vital Signs Date Time Temp Pulse Resp B/P (MAP) Pulse Ox O2 Delivery O2 Flow Rate FiO2 08/22/18 10:20 96 20 92/56 (68) 99 Ventilator 08/22/18 08:00 08/22/18 08:00 99.1 99.1 Physical Exam General: Other (sedated) Heart: Regular rate (SR wth LBBB with first degree AV block), Other (distnat heart sounds 3/6 systolic apical murmur; S3) Lungs: Clear Abdomen: Soft, No tenderness Extremities: No cyanosis, No edema Skin: No breakdown, No significant lesion, Other (tatoos) Labs LABS Laboratory Tests Test 08/21/18 12:29 08/21/18 12:30 08/21/18 12:33 08/21/18 16:00 O2 Saturation 90 % (92-99) 100 % (92-99) Arterial Blood pH 7.10 (7.35-7.45) 7.34 (7.35-7.45) Arterial Blood pCO2 at Patient Temp 45 mmHg (35-46) 43 mmHg (35-46) Arterial Blood pO2 at Patient Temp 76 mmHg (75-108) 362 mmHg (75-108) Arterial Blood HCO3 14 mmol/L (21-28) 23 mmol/L (21-28) Arterial Blood Base Excess -16 mmol/L (-3-3) -3 mmol/L (-3-3) FiO2 100% 100 White Blood Count 14.9 x10^3/uL (4.0-11.0) Red Blood Count 4.91 x10^6/uL (4.30-5.70) Hemoglobin 15.0 g/dL (13.0-17.5) Hematocrit 47.0 % (39.0-53.0) Mean Corpuscular Volume 96 fL (79-100) Mean Corpuscular Hemoglobin 31 pg (25-35) Mean Corpuscular Hemoglobin Concent 32 g/dL (31-37) Red Cell Distribution Width 14.8 % (11.5-14.5) Platelet Count 241 x10^3/uL (140-400) Neutrophils (%) (Auto) 62 % (31-73) Lymphocytes (%) (Auto) 31 % (24-48) Monocytes (%) (Auto) 4 % (0-9) Eosinophils (%) (Auto) 2 % (0-3) Basophils (%) (Auto) 1 % (0-3) Neutrophils # (Auto) 9.2 x10^3uL (1.8-7.7) Lymphocytes # (Auto) 4.6 x10^3/uL (1.0-4.8) Monocytes # (Auto) 0.6 x10^3/uL (0.0-1.1) Eosinophils # (Auto) 0.3 x10^3/uL (0.0-0.7) Basophils # (Auto) 0.1 x10^3/uL (0.0-0.2) Prothrombin Time 13.9 SEC (11.7-14.0) Prothromb Time International Ratio 1.1 (0.8-1.1) Sodium Level 141 mmol/L (136-145) Potassium Level 3.8 mmol/L (3.5-5.1) Chloride Level 102 mmol/L (98-107) Carbon Dioxide Level 20 mmol/L (21-32) Anion Gap 19 (6-14) Blood Urea Nitrogen 17 mg/dL (8-26) Creatinine 1.6 mg/dL (0.7-1.3) Estimated GFR (Cockcroft-Gault) 45.3 BUN/Creatinine Ratio 11 (6-20) Glucose Level 296 mg/dL (70-99) Hemoglobin A1c 5.4 % (4.8-5.6) Lactic Acid Level 8.1 mmol/L (0.4-2.0) Calcium Level 9.1 mg/dL (8.5-10.1) Magnesium Level 2.5 mg/dL (1.8-2.4) Total Bilirubin 0.4 mg/dL (0.2-1.0) Aspartate Amino Transf (AST/SGOT) 40 U/L (15-37) Alanine Aminotransferase (ALT/SGPT) 42 U/L (16-63) Alkaline Phosphatase 94 U/L (46-116) Troponin I Quantitative 0.065 ng/mL (0.000-0.055) JB-Xda-Z-Type Natriuretic Peptide 3115 pg/mL (0-124) Total Protein 7.6 g/dL (6.4-8.2) Albumin 4.4 g/dL (3.4-5.0) Albumin/Globulin Ratio 1.4 (1.0-1.7) Bedside Troponin I 0.05 ng/ml (<0.08) Test 08/21/18 16:35 08/21/18 20:30 08/22/18 00:46 08/22/18 03:30 Lactic Acid Level 1.5 mmol/L (0.4-2.0) Troponin I Quantitative 0.056 ng/mL (0.000-0.055) 0.045 ng/mL (0.000-0.055) Glucose (Fingerstick) 104 mg/dL (70-99) Sodium Level 142 mmol/L (136-145) Potassium Level 3.7 mmol/L (3.5-5.1) Chloride Level 103 mmol/L (98-107) Carbon Dioxide Level 25 mmol/L (21-32) Anion Gap 14 (6-14) Blood Urea Nitrogen 21 mg/dL (8-26) Creatinine 1.0 mg/dL (0.7-1.3) Estimated GFR (Cockcroft-Gault) 77.9 Glucose Level 140 mg/dL (70-99) Calcium Level 8.9 mg/dL (8.5-10.1) Procalcitonin < 0.10 ng/mL (0.00-0.10) Test 08/22/18 03:33 08/22/18 08:00 08/22/18 10:00 White Blood Count 13.8 x10^3/uL (4.0-11.0) Red Blood Count 4.89 x10^6/uL (4.30-5.70) Hemoglobin 14.8 g/dL (13.0-17.5) Hematocrit 45.0 % (39.0-53.0) Mean Corpuscular Volume 92 fL (79-100) Mean Corpuscular Hemoglobin 30 pg (25-35) Mean Corpuscular Hemoglobin Concent 33 g/dL (31-37) Red Cell Distribution Width 13.8 % (11.5-14.5) Platelet Count 240 x10^3/uL (140-400) Neutrophils (%) (Auto) 95 % (31-73) Lymphocytes (%) (Auto) 4 % (24-48) Monocytes (%) (Auto) 1 % (0-9) Eosinophils (%) (Auto) 0 % (0-3) Basophils (%) (Auto) 0 % (0-3) Neutrophils # (Auto) 13.0 x10^3uL (1.8-7.7) Lymphocytes # (Auto) 0.6 x10^3/uL (1.0-4.8) Monocytes # (Auto) 0.2 x10^3/uL (0.0-1.1) Eosinophils # (Auto) 0.0 x10^3/uL (0.0-0.7) Basophils # (Auto) 0.0 x10^3/uL (0.0-0.2) Segmented Neutrophils % 90 % (35-66) Band Neutrophils % 3 % (0-9) Lymphocytes % 5 % (24-48) Monocytes % 2 % (0-10) Platelet Estimate Adequate (ADEQUATE) O2 Saturation 98 % (92-99) Arterial Blood pH 7.39 (7.35-7.45) Arterial Blood pCO2 at Patient Temp 39 mmHg (35-46) Arterial Blood pO2 at Patient Temp 108 mmHg (75-108) Arterial Blood HCO3 23 mmol/L (21-28) Arterial Blood Base Excess -2 mmol/L (-3-3) FiO2 40 Influenza Type A Antigen Negative (NEGATIVE) Influenza Type B Antigen Negative (NEGATIVE) Assessment and Plan Assessmemt and Plan Problems Medical Problems: (1) Pulmonary edema Status: Acute Comment Review of Relevant I have reviewed the following items holly (where applicable) has been applied. Labs Laboratory Tests Test 08/21/18 12:29 08/21/18 12:30 08/21/18 12:33 08/21/18 16:00 O2 Saturation 90 % (92-99) 100 % (92-99) Arterial Blood pH 7.10 (7.35-7.45) 7.34 (7.35-7.45) Arterial Blood pCO2 at Patient Temp 45 mmHg (35-46) 43 mmHg (35-46) Arterial Blood pO2 at Patient Temp 76 mmHg (75-108) 362 mmHg (75-108) Arterial Blood HCO3 14 mmol/L (21-28) 23 mmol/L (21-28) Arterial Blood Base Excess -16 mmol/L (-3-3) -3 mmol/L (-3-3) FiO2 100% 100 White Blood Count 14.9 x10^3/uL (4.0-11.0) Red Blood Count 4.91 x10^6/uL (4.30-5.70) Hemoglobin 15.0 g/dL (13.0-17.5) Hematocrit 47.0 % (39.0-53.0) Mean Corpuscular Volume 96 fL (79-100) Mean Corpuscular Hemoglobin 31 pg (25-35) Mean Corpuscular Hemoglobin Concent 32 g/dL (31-37) Red Cell Distribution Width 14.8 % (11.5-14.5) Platelet Count 241 x10^3/uL (140-400) Neutrophils (%) (Auto) 62 % (31-73) Lymphocytes (%) (Auto) 31 % (24-48) Monocytes (%) (Auto) 4 % (0-9) Eosinophils (%) (Auto) 2 % (0-3) Basophils (%) (Auto) 1 % (0-3) Neutrophils # (Auto) 9.2 x10^3uL (1.8-7.7) Lymphocytes # (Auto) 4.6 x10^3/uL (1.0-4.8) Monocytes # (Auto) 0.6 x10^3/uL (0.0-1.1) Eosinophils # (Auto) 0.3 x10^3/uL (0.0-0.7) Basophils # (Auto) 0.1 x10^3/uL (0.0-0.2) Prothrombin Time 13.9 SEC (11.7-14.0) Prothromb Time International Ratio 1.1 (0.8-1.1) Sodium Level 141 mmol/L (136-145) Potassium Level 3.8 mmol/L (3.5-5.1) Chloride Level 102 mmol/L (98-107) Carbon Dioxide Level 20 mmol/L (21-32) Anion Gap 19 (6-14) Blood Urea Nitrogen 17 mg/dL (8-26) Creatinine 1.6 mg/dL (0.7-1.3) Estimated GFR (Cockcroft-Gault) 45.3 BUN/Creatinine Ratio 11 (6-20) Glucose Level 296 mg/dL (70-99) Hemoglobin A1c 5.4 % (4.8-5.6) Lactic Acid Level 8.1 mmol/L (0.4-2.0) Calcium Level 9.1 mg/dL (8.5-10.1) Magnesium Level 2.5 mg/dL (1.8-2.4) Total Bilirubin 0.4 mg/dL (0.2-1.0) Aspartate Amino Transf (AST/SGOT) 40 U/L (15-37) Alanine Aminotransferase (ALT/SGPT) 42 U/L (16-63) Alkaline Phosphatase 94 U/L (46-116) Troponin I Quantitative 0.065 ng/mL (0.000-0.055) GV-Cbo-J-Type Natriuretic Peptide 3115 pg/mL (0-124) Total Protein 7.6 g/dL (6.4-8.2) Albumin 4.4 g/dL (3.4-5.0) Albumin/Globulin Ratio 1.4 (1.0-1.7) Bedside Troponin I 0.05 ng/ml (<0.08) Test 08/21/18 16:35 08/21/18 20:30 08/22/18 00:46 08/22/18 03:30 Lactic Acid Level 1.5 mmol/L (0.4-2.0) Troponin I Quantitative 0.056 ng/mL (0.000-0.055) 0.045 ng/mL (0.000-0.055) Glucose (Fingerstick) 104 mg/dL (70-99) Sodium Level 142 mmol/L (136-145) Potassium Level 3.7 mmol/L (3.5-5.1) Chloride Level 103 mmol/L (98-107) Carbon Dioxide Level 25 mmol/L (21-32) Anion Gap 14 (6-14) Blood Urea Nitrogen 21 mg/dL (8-26) Creatinine 1.0 mg/dL (0.7-1.3) Estimated GFR (Cockcroft-Gault) 77.9 Glucose Level 140 mg/dL (70-99) Calcium Level 8.9 mg/dL (8.5-10.1) Procalcitonin < 0.10 ng/mL (0.00-0.10) Test 08/22/18 03:33 08/22/18 08:00 08/22/18 10:00 White Blood Count 13.8 x10^3/uL (4.0-11.0) Red Blood Count 4.89 x10^6/uL (4.30-5.70) Hemoglobin 14.8 g/dL (13.0-17.5) Hematocrit 45.0 % (39.0-53.0) Mean Corpuscular Volume 92 fL (79-100) Mean Corpuscular Hemoglobin 30 pg (25-35) Mean Corpuscular Hemoglobin Concent 33 g/dL (31-37) Red Cell Distribution Width 13.8 % (11.5-14.5) Platelet Count 240 x10^3/uL (140-400) Neutrophils (%) (Auto) 95 % (31-73) Lymphocytes (%) (Auto) 4 % (24-48) Monocytes (%) (Auto) 1 % (0-9) Eosinophils (%) (Auto) 0 % (0-3) Basophils (%) (Auto) 0 % (0-3) Neutrophils # (Auto) 13.0 x10^3uL (1.8-7.7) Lymphocytes # (Auto) 0.6 x10^3/uL (1.0-4.8) Monocytes # (Auto) 0.2 x10^3/uL (0.0-1.1) Eosinophils # (Auto) 0.0 x10^3/uL (0.0-0.7) Basophils # (Auto) 0.0 x10^3/uL (0.0-0.2) Segmented Neutrophils % 90 % (35-66) Band Neutrophils % 3 % (0-9) Lymphocytes % 5 % (24-48) Monocytes % 2 % (0-10) Platelet Estimate Adequate (ADEQUATE) O2 Saturation 98 % (92-99) Arterial Blood pH 7.39 (7.35-7.45) Arterial Blood pCO2 at Patient Temp 39 mmHg (35-46) Arterial Blood pO2 at Patient Temp 108 mmHg (75-108) Arterial Blood HCO3 23 mmol/L (21-28) Arterial Blood Base Excess -2 mmol/L (-3-3) FiO2 40 Influenza Type A Antigen Negative (NEGATIVE) Influenza Type B Antigen Negative (NEGATIVE) Laboratory Tests Test 08/21/18 12:29 08/21/18 12:30 08/21/18 12:33 08/21/18 16:00 O2 Saturation 90 % (92-99) 100 % (92-99) Arterial Blood pH 7.10 (7.35-7.45) 7.34 (7.35-7.45) Arterial Blood pCO2 at Patient Temp 45 mmHg (35-46) 43 mmHg (35-46) Arterial Blood pO2 at Patient Temp 76 mmHg (75-108) 362 mmHg (75-108) Arterial Blood HCO3 14 mmol/L (21-28) 23 mmol/L (21-28) Arterial Blood Base Excess -16 mmol/L (-3-3) -3 mmol/L (-3-3) FiO2 100% 100 White Blood Count 14.9 x10^3/uL (4.0-11.0) Red Blood Count 4.91 x10^6/uL (4.30-5.70) Hemoglobin 15.0 g/dL (13.0-17.5) Hematocrit 47.0 % (39.0-53.0) Mean Corpuscular Volume 96 fL (79-100) Mean Corpuscular Hemoglobin 31 pg (25-35) Mean Corpuscular Hemoglobin Concent 32 g/dL (31-37) Red Cell Distribution Width 14.8 % (11.5-14.5) Platelet Count 241 x10^3/uL (140-400) Neutrophils (%) (Auto) 62 % (31-73) Lymphocytes (%) (Auto) 31 % (24-48) Monocytes (%) (Auto) 4 % (0-9) Eosinophils (%) (Auto) 2 % (0-3) Basophils (%) (Auto) 1 % (0-3) Neutrophils # (Auto) 9.2 x10^3uL (1.8-7.7) Lymphocytes # (Auto) 4.6 x10^3/uL (1.0-4.8) Monocytes # (Auto) 0.6 x10^3/uL (0.0-1.1) Eosinophils # (Auto) 0.3 x10^3/uL (0.0-0.7) Basophils # (Auto) 0.1 x10^3/uL (0.0-0.2) Prothrombin Time 13.9 SEC (11.7-14.0) Prothromb Time International Ratio 1.1 (0.8-1.1) Sodium Level 141 mmol/L (136-145) Potassium Level 3.8 mmol/L (3.5-5.1) Chloride Level 102 mmol/L (98-107) Carbon Dioxide Level 20 mmol/L (21-32) Anion Gap 19 (6-14) Blood Urea Nitrogen 17 mg/dL (8-26) Creatinine 1.6 mg/dL (0.7-1.3) Estimated GFR (Cockcroft-Gault) 45.3 BUN/Creatinine Ratio 11 (6-20) Glucose Level 296 mg/dL (70-99) Hemoglobin A1c 5.4 % (4.8-5.6) Lactic Acid Level 8.1 mmol/L (0.4-2.0) Calcium Level 9.1 mg/dL (8.5-10.1) Magnesium Level 2.5 mg/dL (1.8-2.4) Total Bilirubin 0.4 mg/dL (0.2-1.0) Aspartate Amino Transf (AST/SGOT) 40 U/L (15-37) Alanine Aminotransferase (ALT/SGPT) 42 U/L (16-63) Alkaline Phosphatase 94 U/L (46-116) Troponin I Quantitative 0.065 ng/mL (0.000-0.055) ZR-Nkj-H-Type Natriuretic Peptide 3115 pg/mL (0-124) Total Protein 7.6 g/dL (6.4-8.2) Albumin 4.4 g/dL (3.4-5.0) Albumin/Globulin Ratio 1.4 (1.0-1.7) Bedside Troponin I 0.05 ng/ml (<0.08) Test 08/21/18 16:35 08/21/18 20:30 08/22/18 00:46 08/22/18 03:30 Lactic Acid Level 1.5 mmol/L (0.4-2.0) Troponin I Quantitative 0.056 ng/mL (0.000-0.055) 0.045 ng/mL (0.000-0.055) Glucose (Fingerstick) 104 mg/dL (70-99) Sodium Level 142 mmol/L (136-145) Potassium Level 3.7 mmol/L (3.5-5.1) Chloride Level 103 mmol/L (98-107) Carbon Dioxide Level 25 mmol/L (21-32) Anion Gap 14 (6-14) Blood Urea Nitrogen 21 mg/dL (8-26) Creatinine 1.0 mg/dL (0.7-1.3) Estimated GFR (Cockcroft-Gault) 77.9 Glucose Level 140 mg/dL (70-99) Calcium Level 8.9 mg/dL (8.5-10.1) Procalcitonin < 0.10 ng/mL (0.00-0.10) Test 08/22/18 03:33 08/22/18 08:00 08/22/18 10:00 White Blood Count 13.8 x10^3/uL (4.0-11.0) Red Blood Count 4.89 x10^6/uL (4.30-5.70) Hemoglobin 14.8 g/dL (13.0-17.5) Hematocrit 45.0 % (39.0-53.0) Mean Corpuscular Volume 92 fL (79-100) Mean Corpuscular Hemoglobin 30 pg (25-35) Mean Corpuscular Hemoglobin Concent 33 g/dL (31-37) Red Cell Distribution Width 13.8 % (11.5-14.5) Platelet Count 240 x10^3/uL (140-400) Neutrophils (%) (Auto) 95 % (31-73) Lymphocytes (%) (Auto) 4 % (24-48) Monocytes (%) (Auto) 1 % (0-9) Eosinophils (%) (Auto) 0 % (0-3) Basophils (%) (Auto) 0 % (0-3) Neutrophils # (Auto) 13.0 x10^3uL (1.8-7.7) Lymphocytes # (Auto) 0.6 x10^3/uL (1.0-4.8) Monocytes # (Auto) 0.2 x10^3/uL (0.0-1.1) Eosinophils # (Auto) 0.0 x10^3/uL (0.0-0.7) Basophils # (Auto) 0.0 x10^3/uL (0.0-0.2) Segmented Neutrophils % 90 % (35-66) Band Neutrophils % 3 % (0-9) Lymphocytes % 5 % (24-48) Monocytes % 2 % (0-10) Platelet Estimate Adequate (ADEQUATE) O2 Saturation 98 % (92-99) Arterial Blood pH 7.39 (7.35-7.45) Arterial Blood pCO2 at Patient Temp 39 mmHg (35-46) Arterial Blood pO2 at Patient Temp 108 mmHg (75-108) Arterial Blood HCO3 23 mmol/L (21-28) Arterial Blood Base Excess -2 mmol/L (-3-3) FiO2 40 Influenza Type A Antigen Negative (NEGATIVE) Influenza Type B Antigen Negative (NEGATIVE) Medications Current Medications Albuterol/ Ipratropium (Duoneb) 3 ml 1X ONCE NEB Last administered on at 15:56; Start 08/21/18 at 12:30; Stop 08/21/18 at 12:33; Status DC Aspirin (Children'S Aspirin) 324 mg 1X ONCE PO ; Start 08/21/18 at 12:45; Stop 08/21/18 at 12:46; Status DC Propofol 50 ml @ As Directed STK-MED ONCE IV ; Start 08/21/18 at 12:50; Stop 08/21 at 12:51; Status DC Furosemide (Lasix) 40 mg 1X ONCE IVP Last administered on 08/21/18at 13:04; Start 08/21/18 at 13:00; Stop 08/21/18 at 13:01; Status DC Propofol (Diprivan) 200 mg 1X ONCE IV Last administered on 08/21/18at 13:00; Start 08/21/18 at 13:00; Stop 08/21/18 at 13:01; Status DC Piperacillin Sod/ Tazobactam Sod 3.375 gm/Sodium Chloride 50 ml @ 100 mls/hr 1X ONCE IV Last administered on 08/21/18at 13:07; Start 08/21/18 at 13:00; Stop 08/21/18 at 13:29; Status DC Aspirin (Aspirin) 300 mg 1X ONCE [place] Last administered on 08/21/18at 13:09; Start 08/21/18 at 13:15; Stop 08/21/18 at 13:16; Status DC Acetaminophen (Tylenol) 650 mg PRN Q6HRS PRN PO Headaches, Temp > 101.5'; Start 08/21/18 at 13:15 Lorazepam (Ativan) 0.5 mg PRN Q6HRS PRN IV ANXIETY / AGITATION Last administered on 08/21/18at 23:01; Start 08/21/18 at 13:15 Ondansetron HCl (Zofran) 4 mg PRN Q6HRS PRN IV NAUSEA/VOMITING; Start 08/21/18 at 13:15 Famotidine (Pepcid Vial) 20 mg BID IVP Last administered on 08/22/18at 08:49; Start 08/21/18 at 21:00 Info (Icu Electrolyte Protocol) 1 ea DAILY MC Last administered on 08/22/18at 09: 00; Start 08/22/18 at 09:00 Heparin Sodium (Porcine) (Heparin Sodium) 5,000 unit Q12HR SQ Last administered on 08/21/18at 20:49; Start 08/21/18 at 14:00; Stop 08/22/18 at 06:55; Status DC Sodium Chloride (Normal Saline Flush) 3 ml QSHIFT PRN IV AFTER MEDS AND BLOOD DRAWS; Start 08/21/18 at 13:15 Acetaminophen/ Hydrocodone Bitart (Lortab 5/325) 1 tab PRN Q4HRS PRN PO MILD PAIN; Start 08/21/18 at 13:15 Morphine Sulfate (Morphine Sulfate) 2 mg PRN Q1HR PRN IV PAIN; Start 08/21/18 at 13:15; Stop 08/21/18 at 14:28; Status DC Lactulose (Lactulose) 20 gm PRN Q12HR PRN PO CONSTIPATION; Start 08/21/18 at 13: 15 Atorvastatin Calcium (Lipitor) 10 mg QHS PO Last administered on 08/21/18at 20:49 ; Start 08/21/18 at 21:00 Metoprolol Succinate (Toprol Xl) 25 mg DAILY PO ; Start 08/22/18 at 09:00 Lisinopril (Prinivil) 2.5 mg DAILY PO ; Start 08/21/18 at 14:00 Furosemide (Lasix) 40 mg DAILY IVP Last administered on 08/22/18at 08:49; Start 08/22/18 at 09:00 Furosemide (Lasix) 40 mg 1X ONCE IVP Last administered on 08/21/18at 19:45; Start 08/21/18 at 20:00; Stop 08/21/18 at 20:01; Status DC Etomidate (Amidate) 20 mg STK-MED ONCE IV ; Start 08/21/18 at 14:01; Stop at 14:02; Status DC Rocuronium Weldon (Zemuron) 50 mg STK-MED ONCE .ROUTE ; Start 08/21/18 at 14:01 ; Stop 08/21/18 at 14:02; Status DC Propofol 100 ml @ 2.205 mls/ hr CONT PRN IV SEE PROTOCOL Last administered on 08/21/18at 15:53; Start 08/21/18 at 14:30 Fentanyl Citrate (Fentanyl 2ml Vial) 25 mcg PRN Q1HR PRN IV SEE COMMENTS; Start 08/21/18 at 14:30 Fentanyl Citrate (Fentanyl 2ml Vial) 50 mcg PRN Q1HR PRN IV SEE COMMENTS Last administered on 08/21/18at 15:56; Start 08/21/18 at 14:30 Chlorhexidine Gluconate (Peridex) 15 ml BID MM Last administered on 08/21/18at 20 :49; Start 08/21/18 at 21:00; Stop 08/22/18 at 07:41; Status DC Artificial Tears (Artificial Tears) 1 drop PRN Q1HR PRN OU DRY EYE; Start at 14:30 Morphine Sulfate (Morphine Sulfate) 2 mg PRN Q1HR PRN IV SEE COMMENTS.; Start 08/21/18 at 14:30 Morphine Sulfate (Morphine Sulfate) 4 mg PRN Q1HR PRN IV SEE COMMENTS.; Start 08/21/18 at 14:30 Norepinephrine Bitartrate 250 ml @ 1.875 mls/ hr CONT PRN IV SEE I/O RECORD Last administered on 08/22/18 08:25; Start 08/21/18 at 15:30 Midazolam HCl 100 ml @ 5 mls/hr CONT PRN IV SEE I/O RECORD Last administered on 08/22/18at 00:43; Start 08/21/18 at 15:30 Albuterol/ Ipratropium (Duoneb) 3 ml RTQID NEB Last administered on 08/22/18 08 :48; Start 08/21/18 at 20:00 Methylprednisolone Sodium Succinate (SOLU-Medrol 40MG VIAL) 40 mg Q12HR IV Last administered on 08/22/18 08:50; Start 08/21/18 at 21:00 Fentanyl Citrate 30 ml @ 0 mls/hr CONT PRN PRN IV PER PROTOCOL Last administered on 08/21/18 19:57; Start 08/21/18 at 17:45 Enoxaparin Sodium (Lovenox 40mg Syringe) 40 mg Q24H SQ Last administered on 08/22 08:50; Start 08/22/18 at 07:00 Piperacillin Sod/ Tazobactam Sod 3.375 gm/Sodium Chloride 50 ml @ 100 mls/hr Q6HRS IV Last administered on 08/22/18 08:51; Start 08/22/18 at 07:00 Active Scripts Active Atorvastatin Calcium 10 Mg Tablet 1 Tab PO DAILY Lisinopril 2.5 Mg Tablet 1 Tab PO DAILY Metoprolol Succinate ( Xl ) (Metoprolol Succinate) 25 Mg Tab.er.24h 1 Tab PO DAILY Prednisone 20 Mg Tablet 20 Mg PO DAILY 5 Days Reported No Known Medications Prior To Admisstion (Info) Each 1 Each MC 1X Vitals/I & O Vital Sign - Last 24 Hours 08/21/18 08/21/18 08/21/18 08/21/18 12:18 12:34 12:55 13:06 Temp 97.6 97.6 Pulse 66 72 74 76 Resp 31 B/P (MAP) 136/93 (107) 129/85 (100) 148/114 (125) 168/129 (142) Pulse Ox 76 94 91 98 O2 Delivery Nasal Cannula NonRebreather Mask Bag Valve Mask Ventilator O2 Flow Rate 6.0 15.0 15.0 08/21/18 08/21/18 08/21/18 08/21/18 13:16 13:26 13:36 14:00 Pulse 84 66 74 B/P (MAP) 157/111 (126) 159/107 (124) 164/111 (128) Pulse Ox 99 98 99 O2 Delivery Ventilator Ventilator Ventilator Ventilator 08/21/18 08/21/18 08/21/18 08/21/18 14:15 14:29 14:30 14:45 Temp 98.2 98.2 Pulse 79 77 74 Resp 20 20 20 B/P (MAP) 146/111 (123) 137/104 (115) 113/75 (88) Pulse Ox 97 100 96 O2 Delivery Ventilator Ventilator Ventilator Ventilator 08/21/18 08/21/18 08/21/18 08/21/18 15:00 15:15 15:45 15:56 Pulse 71 68 74 Resp 20 20 20 22 B/P (MAP) 49/35 (40) 46/35 (39) 111/71 (84) Pulse Ox 99 100 100 99 O2 Delivery Ventilator Ventilator Ventilator Ventilator 08/21/18 08/21/18 08/21/18 08/21/18 16:00 16:19 16:25 16:28 Temp 98.1 98.1 Pulse 63 65 Resp 20 20 22 B/P (MAP) 55/37 (43) 109/76 (87) Pulse Ox 100 100 99 100 O2 Delivery Ventilator Ventilator 08/21/18 08/21/18 08/21/18 08/21/18 16:55 17:00 17:43 18:00 Pulse 98 84 Resp 20 20 B/P (MAP) 114/73 (87) 118/78 (91) Pulse Ox 99 97 99 O2 Delivery Mechanical Ventilator Ventilator Ventilator Ventilator 08/21/18 08/21/18 08/21/18 08/21/18 19:00 19:57 20:00 20:00 Temp 98.7 98.7 Pulse 54 93 Resp 20 20 20 B/P (MAP) 127/81 (96) 119/85 (96) Pulse Ox 100 100 O2 Delivery Ventilator Ventilator Mechanical Ventilator Ventilator 08/21/18 08/21/18 08/21/18 08/21/18 20:13 20:27 21:00 22:00 Pulse 83 86 Resp 20 20 20 B/P (MAP) 109/81 (90) 86/59 (68) Pulse Ox 97 99 99 99 O2 Delivery Ventilator Ventilator Ventilator Ventilator 08/21/18 08/21/18 08/22/18 08/22/18 23:00 23:36 00:00 00:00 Temp 97.8 97.8 Pulse 84 84 Resp 20 20 B/P (MAP) 100/62 (75) 93/57 (69) Pulse Ox 99 100 100 O2 Delivery Ventilator Ventilator Ventilator Mechanical Ventilator 08/22/18 08/22/18 08/22/18 08/22/18 01:00 02:00 02:42 03:00 Pulse 81 85 84 Resp 20 20 20 B/P (MAP) 100/65 (77) 110/72 (85) 108/74 (85) Pulse Ox 100 100 96 97 O2 Delivery Ventilator Ventilator Ventilator Ventilator 08/22/18 08/22/18 08/22/18 08/22/18 04:00 04:00 05:00 05:44 Temp 99.0 99.0 Pulse 91 89 Resp 20 20 B/P (MAP) 115/66 (82) 118/79 (92) Pulse Ox 98 100 99 O2 Delivery Mechanical Ventilator Ventilator Ventilator Ventilator 08/22/18 08/22/18 08/22/18 08/22/18 06:00 07:00 07:00 07:15 Temp 99.0 99.0 Pulse 105 98 96 92 Resp 20 20 B/P (MAP) 118/70 (86) 101/67 (78) 105/59 (74) 105/66 (79) Pulse Ox 99 99 99 O2 Delivery Ventilator Ventilator O2 Flow Rate 15.0 08/22/18 08/22/18 08/22/18 08/22/18 07:30 07:40 07:41 07:48 Pulse 94 98 98 B/P (MAP) 101/67 (78) 101/67 101/67 Pulse Ox 99 O2 Delivery Ventilator 08/22/18 08/22/18 08/22/18 08/22/18 08:00 08:00 08:00 09:00 Temp 99.1 99.1 Pulse 100 100 Resp 20 20 B/P (MAP) 97/69 (78) 93/54 (67) Pulse Ox 99 100 O2 Delivery Ventilator Mechanical Ventilator Mechanical Ventilator Ventilator O2 Flow Rate 08/22/18 08/22/18 10:00 10:20 Pulse 96 96 Resp 20 20 B/P (MAP) 92/56 (68) 92/56 (68) Pulse Ox 99 99 O2 Delivery Ventilator Ventilator Intake and Output 08/21/18 08/21/18 08/22/18 15:00 23:00 07:00 Intake Total 126 ml 409 ml Output Total 425 ml 1865 ml 408 ml Balance -425 ml -1739 ml 1 ml POP PARSK MD Aug 22, 2018 10:53
--- NOTE | 2018-08-22 13:04 | PDOC ---
PROGRESS NOTES Subjective Subjective Patient seen and examined The patient remains on a ventilator. Objective Objective Vital Signs Date Time Temp Pulse Resp B/P (MAP) Pulse Ox O2 Delivery O2 Flow Rate FiO2 08/22/18 12:04 Ventilator 08/22/18 12:00 97.6 94 20 103/67 (79) 100 97.6 08/22/18 08:00 Intake and Output 08/22/18 07:00 Intake Total 535 ml Output Total 2698 ml Balance -2163 ml Intake IV Total 535 ml Output Urine Total 2698 ml Physical Exam Abdomen: Normal bowel sounds Heart: Regular rate General: Other (intubated) Lungs: Other (decreased breath sounds) Assessment Assessment Problems Medical Problems: (1) Pulmonary edema Status: Acute ASSESSMENT/PLAN 1. Acute on chronic respiratory failure with acute CHF and AECOPD. The patient remains on the ventilator. Updated echocardiogram shows an ejection fraction of 35-40% with moderate mitral regurgitation. Continuing present treatment. 2. Moderate mitral regurgitation. Continue present treatments. 3. Cardiomyopathy: Updated ejection fraction of 35-40%. 4. Acute on chronic systolic CHF: multifactorial with noncompliance, MR and COPD. 5. Heavy tobaccoism 6. HTN: controlled 7. Severe noncompliance. Comment Review of Relevant I have reviewed the following items holly (where applicable) has been applied. Labs Laboratory Tests Test 08/21/18 12:29 08/21/18 12:30 08/21/18 12:33 08/21/18 16:00 O2 Saturation 90 % (92-99) 100 % (92-99) Arterial Blood pH 7.10 (7.35-7.45) 7.34 (7.35-7.45) Arterial Blood pCO2 at Patient Temp 45 mmHg (35-46) 43 mmHg (35-46) Arterial Blood pO2 at Patient Temp 76 mmHg (75-108) 362 mmHg (75-108) Arterial Blood HCO3 14 mmol/L (21-28) 23 mmol/L (21-28) Arterial Blood Base Excess -16 mmol/L (-3-3) -3 mmol/L (-3-3) FiO2 100% 100 White Blood Count 14.9 x10^3/uL (4.0-11.0) Red Blood Count 4.91 x10^6/uL (4.30-5.70) Hemoglobin 15.0 g/dL (13.0-17.5) Hematocrit 47.0 % (39.0-53.0) Mean Corpuscular Volume 96 fL (79-100) Mean Corpuscular Hemoglobin 31 pg (25-35) Mean Corpuscular Hemoglobin Concent 32 g/dL (31-37) Red Cell Distribution Width 14.8 % (11.5-14.5) Platelet Count 241 x10^3/uL (140-400) Neutrophils (%) (Auto) 62 % (31-73) Lymphocytes (%) (Auto) 31 % (24-48) Monocytes (%) (Auto) 4 % (0-9) Eosinophils (%) (Auto) 2 % (0-3) Basophils (%) (Auto) 1 % (0-3) Neutrophils # (Auto) 9.2 x10^3uL (1.8-7.7) Lymphocytes # (Auto) 4.6 x10^3/uL (1.0-4.8) Monocytes # (Auto) 0.6 x10^3/uL (0.0-1.1) Eosinophils # (Auto) 0.3 x10^3/uL (0.0-0.7) Basophils # (Auto) 0.1 x10^3/uL (0.0-0.2) Prothrombin Time 13.9 SEC (11.7-14.0) Prothromb Time International Ratio 1.1 (0.8-1.1) Sodium Level 141 mmol/L (136-145) Potassium Level 3.8 mmol/L (3.5-5.1) Chloride Level 102 mmol/L (98-107) Carbon Dioxide Level 20 mmol/L (21-32) Anion Gap 19 (6-14) Blood Urea Nitrogen 17 mg/dL (8-26) Creatinine 1.6 mg/dL (0.7-1.3) Estimated GFR (Cockcroft-Gault) 45.3 BUN/Creatinine Ratio 11 (6-20) Glucose Level 296 mg/dL (70-99) Hemoglobin A1c 5.4 % (4.8-5.6) Lactic Acid Level 8.1 mmol/L (0.4-2.0) Calcium Level 9.1 mg/dL (8.5-10.1) Magnesium Level 2.5 mg/dL (1.8-2.4) Total Bilirubin 0.4 mg/dL (0.2-1.0) Aspartate Amino Transf (AST/SGOT) 40 U/L (15-37) Alanine Aminotransferase (ALT/SGPT) 42 U/L (16-63) Alkaline Phosphatase 94 U/L (46-116) Troponin I Quantitative 0.065 ng/mL (0.000-0.055) AV-Yss-I-Type Natriuretic Peptide 3115 pg/mL (0-124) Total Protein 7.6 g/dL (6.4-8.2) Albumin 4.4 g/dL (3.4-5.0) Albumin/Globulin Ratio 1.4 (1.0-1.7) Bedside Troponin I 0.05 ng/ml (<0.08) Test 08/21/18 16:35 08/21/18 20:30 08/22/18 00:46 08/22/18 03:30 Lactic Acid Level 1.5 mmol/L (0.4-2.0) Troponin I Quantitative 0.056 ng/mL (0.000-0.055) 0.045 ng/mL (0.000-0.055) Glucose (Fingerstick) 104 mg/dL (70-99) Sodium Level 142 mmol/L (136-145) Potassium Level 3.7 mmol/L (3.5-5.1) Chloride Level 103 mmol/L (98-107) Carbon Dioxide Level 25 mmol/L (21-32) Anion Gap 14 (6-14) Blood Urea Nitrogen 21 mg/dL (8-26) Creatinine 1.0 mg/dL (0.7-1.3) Estimated GFR (Cockcroft-Gault) 77.9 Glucose Level 140 mg/dL (70-99) Calcium Level 8.9 mg/dL (8.5-10.1) Procalcitonin < 0.10 ng/mL (0.00-0.10) Test 08/22/18 03:33 08/22/18 08:00 08/22/18 10:00 08/22/18 11:59 White Blood Count 13.8 x10^3/uL (4.0-11.0) Red Blood Count 4.89 x10^6/uL (4.30-5.70) Hemoglobin 14.8 g/dL (13.0-17.5) Hematocrit 45.0 % (39.0-53.0) Mean Corpuscular Volume 92 fL (79-100) Mean Corpuscular Hemoglobin 30 pg (25-35) Mean Corpuscular Hemoglobin Concent 33 g/dL (31-37) Red Cell Distribution Width 13.8 % (11.5-14.5) Platelet Count 240 x10^3/uL (140-400) Neutrophils (%) (Auto) 95 % (31-73) Lymphocytes (%) (Auto) 4 % (24-48) Monocytes (%) (Auto) 1 % (0-9) Eosinophils (%) (Auto) 0 % (0-3) Basophils (%) (Auto) 0 % (0-3) Neutrophils # (Auto) 13.0 x10^3uL (1.8-7.7) Lymphocytes # (Auto) 0.6 x10^3/uL (1.0-4.8) Monocytes # (Auto) 0.2 x10^3/uL (0.0-1.1) Eosinophils # (Auto) 0.0 x10^3/uL (0.0-0.7) Basophils # (Auto) 0.0 x10^3/uL (0.0-0.2) Segmented Neutrophils % 90 % (35-66) Band Neutrophils % 3 % (0-9) Lymphocytes % 5 % (24-48) Monocytes % 2 % (0-10) Platelet Estimate Adequate (ADEQUATE) O2 Saturation 98 % (92-99) Arterial Blood pH 7.39 (7.35-7.45) Arterial Blood pCO2 at Patient Temp 39 mmHg (35-46) Arterial Blood pO2 at Patient Temp 108 mmHg (75-108) Arterial Blood HCO3 23 mmol/L (21-28) Arterial Blood Base Excess -2 mmol/L (-3-3) FiO2 40 Influenza Type A Antigen Negative (NEGATIVE) Influenza Type B Antigen Negative (NEGATIVE) Glucose (Fingerstick) 125 mg/dL (70-99) Laboratory Tests Test 08/21/18 16:00 08/21/18 16:35 08/21/18 20:30 08/22/18 00:46 O2 Saturation 100 % (92-99) Arterial Blood pH 7.34 (7.35-7.45) Arterial Blood pCO2 at Patient Temp 43 mmHg (35-46) Arterial Blood pO2 at Patient Temp 362 mmHg (75-108) Arterial Blood HCO3 23 mmol/L (21-28) Arterial Blood Base Excess -3 mmol/L (-3-3) FiO2 100 Lactic Acid Level 1.5 mmol/L (0.4-2.0) Troponin I Quantitative 0.056 ng/mL (0.000-0.055) 0.045 ng/mL (0.000-0.055) Glucose (Fingerstick) 104 mg/dL (70-99) Test 08/22/18 03:30 08/22/18 03:33 08/22/18 08:00 08/22/18 10:00 Sodium Level 142 mmol/L (136-145) Potassium Level 3.7 mmol/L (3.5-5.1) Chloride Level 103 mmol/L (98-107) Carbon Dioxide Level 25 mmol/L (21-32) Anion Gap 14 (6-14) Blood Urea Nitrogen 21 mg/dL (8-26) Creatinine 1.0 mg/dL (0.7-1.3) Estimated GFR (Cockcroft-Gault) 77.9 Glucose Level 140 mg/dL (70-99) Calcium Level 8.9 mg/dL (8.5-10.1) Procalcitonin < 0.10 ng/mL (0.00-0.10) White Blood Count 13.8 x10^3/uL (4.0-11.0) Red Blood Count 4.89 x10^6/uL (4.30-5.70) Hemoglobin 14.8 g/dL (13.0-17.5) Hematocrit 45.0 % (39.0-53.0) Mean Corpuscular Volume 92 fL (79-100) Mean Corpuscular Hemoglobin 30 pg (25-35) Mean Corpuscular Hemoglobin Concent 33 g/dL (31-37) Red Cell Distribution Width 13.8 % (11.5-14.5) Platelet Count 240 x10^3/uL (140-400) Neutrophils (%) (Auto) 95 % (31-73) Lymphocytes (%) (Auto) 4 % (24-48) Monocytes (%) (Auto) 1 % (0-9) Eosinophils (%) (Auto) 0 % (0-3) Basophils (%) (Auto) 0 % (0-3) Neutrophils # (Auto) 13.0 x10^3uL (1.8-7.7) Lymphocytes # (Auto) 0.6 x10^3/uL (1.0-4.8) Monocytes # (Auto) 0.2 x10^3/uL (0.0-1.1) Eosinophils # (Auto) 0.0 x10^3/uL (0.0-0.7) Basophils # (Auto) 0.0 x10^3/uL (0.0-0.2) Segmented Neutrophils % 90 % (35-66) Band Neutrophils % 3 % (0-9) Lymphocytes % 5 % (24-48) Monocytes % 2 % (0-10) Platelet Estimate Adequate (ADEQUATE) O2 Saturation 98 % (92-99) Arterial Blood pH 7.39 (7.35-7.45) Arterial Blood pCO2 at Patient Temp 39 mmHg (35-46) Arterial Blood pO2 at Patient Temp 108 mmHg (75-108) Arterial Blood HCO3 23 mmol/L (21-28) Arterial Blood Base Excess -2 mmol/L (-3-3) FiO2 40 Influenza Type A Antigen Negative (NEGATIVE) Influenza Type B Antigen Negative (NEGATIVE) Test 08/22/18 11:59 Glucose (Fingerstick) 125 mg/dL (70-99) Medications Current Medications Albuterol/ Ipratropium (Duoneb) 3 ml 1X ONCE NEB Last administered on at 15:56; Start 08/21/18 at 12:30; Stop 08/21/18 at 12:33; Status DC Aspirin (Children'S Aspirin) 324 mg 1X ONCE PO ; Start 08/21/18 at 12:45; Stop 08/21/18 at 12:46; Status DC Propofol 50 ml @ As Directed STK-MED ONCE IV ; Start 08/21/18 at 12:50; Stop 08/21 at 12:51; Status DC Furosemide (Lasix) 40 mg 1X ONCE IVP Last administered on 08/21/18at 13:04; Start 08/21/18 at 13:00; Stop 08/21/18 at 13:01; Status DC Propofol (Diprivan) 200 mg 1X ONCE IV Last administered on 08/21/18at 13:00; Start 08/21/18 at 13:00; Stop 08/21/18 at 13:01; Status DC Piperacillin Sod/ Tazobactam Sod 3.375 gm/Sodium Chloride 50 ml @ 100 mls/hr 1X ONCE IV Last administered on 08/21/18at 13:07; Start 08/21/18 at 13:00; Stop 08/21/18 at 13:29; Status DC Aspirin (Aspirin) 300 mg 1X ONCE MN Last administered on 08/21/18at 13:09; Start 08/21/18 at 13:15; Stop 08/21/18 at 13:16; Status DC Acetaminophen (Tylenol) 650 mg PRN Q6HRS PRN PO Headaches, Temp > 101.5'; Start 08/21/18 at 13:15 Lorazepam (Ativan) 0.5 mg PRN Q6HRS PRN IV ANXIETY / AGITATION Last administered on 08/21/18at 23:01; Start 08/21/18 at 13:15 Ondansetron HCl (Zofran) 4 mg PRN Q6HRS PRN IV NAUSEA/VOMITING; Start 08/21/18 at 13:15 Famotidine (Pepcid Vial) 20 mg BID IVP Last administered on 08/22/18at 08:49; Start 08/21/18 at 21:00 Info (Icu Electrolyte Protocol) 1 ea DAILY MC Last administered on 08/22/18at 09: 00; Start 08/22/18 at 09:00 Heparin Sodium (Porcine) (Heparin Sodium) 5,000 unit Q12HR SQ Last administered on 08/21/18at 20:49; Start 08/21/18 at 14:00; Stop 08/22/18 at 06:55; Status DC Sodium Chloride (Normal Saline Flush) 3 ml QSHIFT PRN IV AFTER MEDS AND BLOOD DRAWS; Start 08/21/18 at 13:15 Acetaminophen/ Hydrocodone Bitart (Lortab 5/325) 1 tab PRN Q4HRS PRN PO MILD PAIN; Start 08/21/18 at 13:15 Morphine Sulfate (Morphine Sulfate) 2 mg PRN Q1HR PRN IV PAIN; Start 08/21/18 at 13:15; Stop 08/21/18 at 14:28; Status DC Lactulose (Lactulose) 20 gm PRN Q12HR PRN PO CONSTIPATION; Start 08/21/18 at 13: 15 Atorvastatin Calcium (Lipitor) 10 mg QHS PO Last administered on 08/21/18at 20:49 ; Start 08/21/18 at 21:00 Metoprolol Succinate (Toprol Xl) 25 mg DAILY PO ; Start 08/22/18 at 09:00 Lisinopril (Prinivil) 2.5 mg DAILY PO ; Start 08/21/18 at 14:00 Furosemide (Lasix) 40 mg DAILY IVP Last administered on 08/22/18at 08:49; Start 08/22/18 at 09:00 Furosemide (Lasix) 40 mg 1X ONCE IVP Last administered on 08/21/18at 19:45; Start 08/21/18 at 20:00; Stop 08/21/18 at 20:01; Status DC Etomidate (Amidate) 20 mg STK-MED ONCE IV ; Start 08/21/18 at 14:01; Stop at 14:02; Status DC Rocuronium [place] (Zemuron) 50 mg STK-MED ONCE .ROUTE ; Start 08/21/18 at 14:01 ; Stop 08/21/18 at 14:02; Status DC Propofol 100 ml @ 2.205 mls/ hr CONT PRN IV SEE PROTOCOL Last administered on 08/21/18at 15:53; Start 08/21/18 at 14:30 Fentanyl Citrate (Fentanyl 2ml Vial) 25 mcg PRN Q1HR PRN IV SEE COMMENTS; Start 08/21/18 at 14:30 Fentanyl Citrate (Fentanyl 2ml Vial) 50 mcg PRN Q1HR PRN IV SEE COMMENTS Last administered on 08/21/18at 15:56; Start 08/21/18 at 14:30 Chlorhexidine Gluconate (Peridex) 15 ml BID MM Last administered on 08/21/18at 20 :49; Start 08/21/18 at 21:00; Stop 08/22/18 at 07:41; Status DC Artificial Tears (Artificial Tears) 1 drop PRN Q1HR PRN OU DRY EYE; Start at 14:30 Morphine Sulfate (Morphine Sulfate) 2 mg PRN Q1HR PRN IV SEE COMMENTS.; Start 08/21/18 at 14:30 Morphine Sulfate (Morphine Sulfate) 4 mg PRN Q1HR PRN IV SEE COMMENTS.; Start 08/21/18 at 14:30 Norepinephrine Bitartrate 250 ml @ 1.875 mls/ hr CONT PRN IV SEE I/O RECORD Last administered on 08/22/18 08:25; Start 08/21/18 at 15:30 Midazolam HCl 100 ml @ 5 mls/hr CONT PRN IV SEE I/O RECORD Last administered on 08/22/18at 00:43; Start 08/21/18 at 15:30 Albuterol/ Ipratropium (Duoneb) 3 ml RTQID NEB Last administered on 08/22/18 12 :25; Start 08/21/18 at 20:00 Methylprednisolone Sodium Succinate (SOLU-Medrol 40MG VIAL) 40 mg Q12HR IV Last administered on 08/22/18 08:50; Start 08/21/18 at 21:00 Fentanyl Citrate 30 ml @ 0 mls/hr CONT PRN PRN IV PER PROTOCOL Last administered on 08/22/18 11:09; Start 08/21/18 at 17:45 Enoxaparin Sodium (Lovenox 40mg Syringe) 40 mg Q24H SQ Last administered on 08/22 08:50; Start 08/22/18 at 07:00 Piperacillin Sod/ Tazobactam Sod 3.375 gm/Sodium Chloride 50 ml @ 100 mls/hr Q6HRS IV Last administered on 08/22/18 12:31; Start 08/22/18 at 07:00 Active Scripts Active Atorvastatin Calcium 10 Mg Tablet 1 Tab PO DAILY Lisinopril 2.5 Mg Tablet 1 Tab PO DAILY Metoprolol Succinate ( Xl ) (Metoprolol Succinate) 25 Mg Tab.er.24h 1 Tab PO DAILY Prednisone 20 Mg Tablet 20 Mg PO DAILY 5 Days Reported No Known Medications Prior To Admisstion (Info) Each 1 Each MC 1X Vitals/I & O Vital Sign - Last 24 Hours 08/21/18 08/21/18 08/21/18 08/21/18 13:06 13:16 13:26 13:36 Pulse 76 84 66 74 B/P (MAP) 168/129 (142) 157/111 (126) 159/107 (124) 164/111 (128) Pulse Ox 98 99 98 99 O2 Delivery Ventilator Ventilator Ventilator Ventilator 08/21/18 08/21/18 08/21/18 08/21/18 14:00 14:15 14:29 14:30 Temp 98.2 98.2 Pulse 79 77 Resp 20 20 B/P (MAP) 146/111 (123) 137/104 (115) Pulse Ox 97 100 O2 Delivery Ventilator Ventilator Ventilator Ventilator 08/21/18 08/21/18 08/21/18 08/21/18 14:45 15:00 15:15 15:45 Pulse 74 71 68 74 Resp 20 20 20 20 B/P (MAP) 113/75 (88) 49/35 (40) 46/35 (39) 111/71 (84) Pulse Ox 96 99 100 100 O2 Delivery Ventilator Ventilator Ventilator Ventilator 08/21/18 08/21/18 08/21/18 08/21/18 15:56 16:00 16:19 16:25 Temp 98.1 98.1 Pulse 63 65 Resp 22 20 20 B/P (MAP) 55/37 (43) 109/76 (87) Pulse Ox 99 100 100 99 O2 Delivery Ventilator Ventilator Ventilator 08/21/18 08/21/18 08/21/18 08/21/18 16:28 16:55 17:00 17:43 Pulse 98 Resp 22 20 B/P (MAP) 114/73 (87) Pulse Ox 100 99 97 O2 Delivery Mechanical Ventilator Ventilator Ventilator 08/21/18 08/21/18 08/21/18 08/21/18 18:00 19:00 19:57 20:00 Pulse 84 54 Resp 20 20 20 B/P (MAP) 118/78 (91) 127/81 (96) Pulse Ox 99 100 O2 Delivery Ventilator Ventilator Ventilator Mechanical Ventilator 08/21/18 08/21/18 08/21/18 08/21/18 20:00 20:13 20:27 21:00 Temp 98.7 98.7 Pulse 93 83 Resp 20 20 20 B/P (MAP) 119/85 (96) 109/81 (90) Pulse Ox 100 97 99 99 O2 Delivery Ventilator Ventilator Ventilator 08/21/18 08/21/18 08/21/18 08/22/18 22:00 23:00 23:36 00:00 Temp 97.8 97.8 Pulse 86 84 84 Resp 20 20 20 B/P (MAP) 86/59 (68) 100/62 (75) 93/57 (69) Pulse Ox 99 99 100 100 O2 Delivery Ventilator Ventilator Ventilator Ventilator 08/22/18 08/22/18 08/22/18 08/22/18 00:00 01:00 02:00 02:42 Pulse 81 85 Resp 20 20 B/P (MAP) 100/65 (77) 110/72 (85) Pulse Ox 100 100 96 O2 Delivery Mechanical Ventilator Ventilator Ventilator Ventilator 08/22/18 08/22/18 08/22/18 08/22/18 03:00 04:00 04:00 05:00 Temp 99.0 99.0 Pulse 84 91 89 Resp 20 20 20 B/P (MAP) 108/74 (85) 115/66 (82) 118/79 (92) Pulse Ox 97 98 100 O2 Delivery Ventilator Mechanical Ventilator Ventilator Ventilator 08/22/18 08/22/18 08/22/18 08/22/18 05:44 06:00 07:00 07:00 Temp 99.0 99.0 Pulse 105 98 96 Resp 20 20 B/P (MAP) 118/70 (86) 101/67 (78) 105/59 (74) Pulse Ox 99 99 99 99 O2 Delivery Ventilator Ventilator Ventilator O2 Flow Rate 15.0 08/22/18 08/22/18 08/22/18 08/22/18 07:15 07:30 07:40 07:41 Pulse 92 94 98 98 B/P (MAP) 105/66 (79) 101/67 (78) 101/67 101/67 08/22/18 08/22/18 08/22/18 08/22/18 07:48 08:00 08:00 08:00 Temp 99.1 99.1 Pulse 100 Resp 20 B/P (MAP) 97/69 (78) Pulse Ox 99 99 O2 Delivery Ventilator Ventilator Mechanical Ventilator Mechanical Ventilator O2 Flow Rate 08/22/18 08/22/18 08/22/18 08/22/18 09:00 10:00 10:20 11:00 Pulse 100 96 96 90 Resp 20 20 20 20 B/P (MAP) 93/54 (67) 92/56 (68) 92/56 (68) 111/75 (87) Pulse Ox 100 99 99 99 O2 Delivery Ventilator Ventilator Ventilator Ventilator 08/22/18 08/22/18 08/22/18 08/22/18 11:09 11:35 12:00 12:00 Temp 97.6 97.6 Pulse 94 Resp 20 B/P (MAP) 103/67 (79) Pulse Ox 99 100 O2 Delivery Ventilator Ventilator Ventilator Mechanical Ventilator 08/22/18 12:04 O2 Delivery Ventilator Intake and Output 08/21/18 08/21/18 08/22/18 15:00 23:00 07:00 Intake Total 126 ml 409 ml Output Total 425 ml 1865 ml 408 ml Balance -425 ml -1739 ml 1 ml JOHNATHAN STEPHENSON MD Aug 22, 2018 13:04
[2018-08-22] MEDS: ATORVASTATIN CALCIUM 10 MG TABLET. PO SCH (20:55)
[2018-08-23] VITALS (27 sets, daily range): BP systolic 86–120; BP diastolic 55–86
[2018-08-23] MEDS: PIPERACILLIN/TAZOBACTAM 3.375 GM in IV NORMAL SALINE 50ML 50 ML IV SCH ×4 (00:01→17:25)
[2018-08-23] MEDS: ENOXAPARIN 40 MG/0.4 ML SYRINGE. SQ SCH (05:14)
[2018-08-23] MEDS: LISINOPRIL 5 MG TABLET. PO SCH (07:37)
[2018-08-23] MEDS: METOPROLOL SUCC 24HR ER 25 MG TAB.ER.24H. PO SCH (07:37)
[2018-08-23] MEDS: IPRATRPIUM/ALBUTEROL 0.5/2.5MG 3 ML NEBU. NEB SCH ×4 (07:43→20:06)
[2018-08-23] MEDS: methylPREDNISolone SOD SUCC PF 40 MG/ML VIAL. IV SCH ×2 (08:29→21:19)
[2018-08-23] MEDS: FAMOTIDINE 20 MG/2 ML VIAL IVP SCH ×2 (08:29→21:19)
[2018-08-23] MEDS: FUROSEMIDE 40 MG/4 ML VIAL. IVP SCH (08:29)
[2018-08-23] MEDS: ELECTROLYTE (ICU) PROTOCOL. MC SCH (08:38)
--- NOTE | 2018-08-23 09:56 | PDOC ---
PROGRESS NOTES Chief Complaint Chief Complaint Acute hypoxemic respiratory failure secondary to pulmonary edema Mildly elevated troponin most likely secondary to demand ischemia Type II non-STEMI, evidence of old left bundle branch block does not seem to be an acute coronary syndrome Acute on chronic COPD exacerbation tobacco abuse Tobacco abuse Nonadherence to treatment plan Acute on chronic congestive heart failure with systolic dysfunction last EF recorded at 40-45% Moderate to severe mitral regurgitation Plan will probably do trial and try to extubate today continue with diuresis Ventilatory support Consult pulmonology Repeat labs in the a.m. Further recommendations based on the clinical course DVT prophylaxis with heparin Pulmonology recommendations greatly appreciated History of Present Illness History of Present Illness Patient responding to verbal stimuli, most likely will be able to extubate today Vitals Vitals Vital Signs Date Time Temp Pulse Resp B/P (MAP) Pulse Ox O2 Delivery O2 Flow Rate FiO2 08/23/18 09:15 65 109/75 (86) 08/23/18 09:00 20 99 Ventilator 08/23/18 08:00 98.7 98.7 08/22/18 08:00 Physical Exam General: Other (intubated) Heart: Regular rate Lungs: Clear Abdomen: Normal bowel sounds Extremities: No cyanosis, No edema Skin: No breakdown, No significant lesion, Other (tatoos) Labs LABS Laboratory Tests Test 08/22/18 10:00 08/22/18 11:59 Influenza Type A Antigen Negative (NEGATIVE) Influenza Type B Antigen Negative (NEGATIVE) Glucose (Fingerstick) 125 mg/dL (70-99) Assessment and Plan Assessmemt and Plan Problems Medical Problems: (1) Pulmonary edema Status: Acute Comment Review of Relevant I have reviewed the following items holly (where applicable) has been applied. Labs Laboratory Tests Test 08/21/18 12:29 08/21/18 12:30 08/21/18 12:33 08/21/18 16:00 O2 Saturation 90 % (92-99) 100 % (92-99) Arterial Blood pH 7.10 (7.35-7.45) 7.34 (7.35-7.45) Arterial Blood pCO2 at Patient Temp 45 mmHg (35-46) 43 mmHg (35-46) Arterial Blood pO2 at Patient Temp 76 mmHg (75-108) 362 mmHg (75-108) Arterial Blood HCO3 14 mmol/L (21-28) 23 mmol/L (21-28) Arterial Blood Base Excess -16 mmol/L (-3-3) -3 mmol/L (-3-3) FiO2 100% 100 White Blood Count 14.9 x10^3/uL (4.0-11.0) Red Blood Count 4.91 x10^6/uL (4.30-5.70) Hemoglobin 15.0 g/dL (13.0-17.5) Hematocrit 47.0 % (39.0-53.0) Mean Corpuscular Volume 96 fL (79-100) Mean Corpuscular Hemoglobin 31 pg (25-35) Mean Corpuscular Hemoglobin Concent 32 g/dL (31-37) Red Cell Distribution Width 14.8 % (11.5-14.5) Platelet Count 241 x10^3/uL (140-400) Neutrophils (%) (Auto) 62 % (31-73) Lymphocytes (%) (Auto) 31 % (24-48) Monocytes (%) (Auto) 4 % (0-9) Eosinophils (%) (Auto) 2 % (0-3) Basophils (%) (Auto) 1 % (0-3) Neutrophils # (Auto) 9.2 x10^3uL (1.8-7.7) Lymphocytes # (Auto) 4.6 x10^3/uL (1.0-4.8) Monocytes # (Auto) 0.6 x10^3/uL (0.0-1.1) Eosinophils # (Auto) 0.3 x10^3/uL (0.0-0.7) Basophils # (Auto) 0.1 x10^3/uL (0.0-0.2) Prothrombin Time 13.9 SEC (11.7-14.0) Prothromb Time International Ratio 1.1 (0.8-1.1) Sodium Level 141 mmol/L (136-145) Potassium Level 3.8 mmol/L (3.5-5.1) Chloride Level 102 mmol/L (98-107) Carbon Dioxide Level 20 mmol/L (21-32) Anion Gap 19 (6-14) Blood Urea Nitrogen 17 mg/dL (8-26) Creatinine 1.6 mg/dL (0.7-1.3) Estimated GFR (Cockcroft-Gault) 45.3 BUN/Creatinine Ratio 11 (6-20) Glucose Level 296 mg/dL (70-99) Hemoglobin A1c 5.4 % (4.8-5.6) Lactic Acid Level 8.1 mmol/L (0.4-2.0) Calcium Level 9.1 mg/dL (8.5-10.1) Magnesium Level 2.5 mg/dL (1.8-2.4) Total Bilirubin 0.4 mg/dL (0.2-1.0) Aspartate Amino Transf (AST/SGOT) 40 U/L (15-37) Alanine Aminotransferase (ALT/SGPT) 42 U/L (16-63) Alkaline Phosphatase 94 U/L (46-116) Troponin I Quantitative 0.065 ng/mL (0.000-0.055) CT-Rzo-C-Type Natriuretic Peptide 3115 pg/mL (0-124) Total Protein 7.6 g/dL (6.4-8.2) Albumin 4.4 g/dL (3.4-5.0) Albumin/Globulin Ratio 1.4 (1.0-1.7) Bedside Troponin I 0.05 ng/ml (<0.08) Test 08/21/18 16:35 08/21/18 19:15 08/21/18 20:30 08/22/18 00:46 Lactic Acid Level 1.5 mmol/L (0.4-2.0) Troponin I Quantitative 0.056 ng/mL (0.000-0.055) 0.045 ng/mL (0.000-0.055) Nasal Screen MRSA (PCR) Negative (Negative) Glucose (Fingerstick) 104 mg/dL (70-99) Test 08/22/18 03:30 08/22/18 03:33 08/22/18 08:00 08/22/18 10:00 Sodium Level 142 mmol/L (136-145) Potassium Level 3.7 mmol/L (3.5-5.1) Chloride Level 103 mmol/L (98-107) Carbon Dioxide Level 25 mmol/L (21-32) Anion Gap 14 (6-14) Blood Urea Nitrogen 21 mg/dL (8-26) Creatinine 1.0 mg/dL (0.7-1.3) Estimated GFR (Cockcroft-Gault) 77.9 Glucose Level 140 mg/dL (70-99) Calcium Level 8.9 mg/dL (8.5-10.1) Procalcitonin < 0.10 ng/mL (0.00-0.10) White Blood Count 13.8 x10^3/uL (4.0-11.0) Red Blood Count 4.89 x10^6/uL (4.30-5.70) Hemoglobin 14.8 g/dL (13.0-17.5) Hematocrit 45.0 % (39.0-53.0) Mean Corpuscular Volume 92 fL (79-100) Mean Corpuscular Hemoglobin 30 pg (25-35) Mean Corpuscular Hemoglobin Concent 33 g/dL (31-37) Red Cell Distribution Width 13.8 % (11.5-14.5) Platelet Count 240 x10^3/uL (140-400) Neutrophils (%) (Auto) 95 % (31-73) Lymphocytes (%) (Auto) 4 % (24-48) Monocytes (%) (Auto) 1 % (0-9) Eosinophils (%) (Auto) 0 % (0-3) Basophils (%) (Auto) 0 % (0-3) Neutrophils # (Auto) 13.0 x10^3uL (1.8-7.7) Lymphocytes # (Auto) 0.6 x10^3/uL (1.0-4.8) Monocytes # (Auto) 0.2 x10^3/uL (0.0-1.1) Eosinophils # (Auto) 0.0 x10^3/uL (0.0-0.7) Basophils # (Auto) 0.0 x10^3/uL (0.0-0.2) Segmented Neutrophils % 90 % (35-66) Band Neutrophils % 3 % (0-9) Lymphocytes % 5 % (24-48) Monocytes % 2 % (0-10) Platelet Estimate Adequate (ADEQUATE) O2 Saturation 98 % (92-99) Arterial Blood pH 7.39 (7.35-7.45) Arterial Blood pCO2 at Patient Temp 39 mmHg (35-46) Arterial Blood pO2 at Patient Temp 108 mmHg (75-108) Arterial Blood HCO3 23 mmol/L (21-28) Arterial Blood Base Excess -2 mmol/L (-3-3) FiO2 40 Influenza Type A Antigen Negative (NEGATIVE) Influenza Type B Antigen Negative (NEGATIVE) Test 08/22/18 11:59 Glucose (Fingerstick) 125 mg/dL (70-99) Laboratory Tests Test 08/22/18 10:00 08/22/18 11:59 Influenza Type A Antigen Negative (NEGATIVE) Influenza Type B Antigen Negative (NEGATIVE) Glucose (Fingerstick) 125 mg/dL (70-99) Microbiology 08/21/18 Blood Culture - Preliminary, Resulted NO GROWTH AFTER 1 DAY Medications Current Medications Albuterol/ Ipratropium (Duoneb) 3 ml 1X ONCE NEB Last administered on at 15:56; Start 08/21/18 at 12:30; Stop 08/21/18 at 12:33; Status DC Aspirin (Children'S Aspirin) 324 mg 1X ONCE PO ; Start 08/21/18 at 12:45; Stop 08/21/18 at 12:46; Status DC Propofol 50 ml @ As Directed STK-MED ONCE IV ; Start 08/21/18 at 12:50; Stop 08/21 at 12:51; Status DC Furosemide (Lasix) 40 mg 1X ONCE IVP Last administered on 08/21/18at 13:04; Start 08/21/18 at 13:00; Stop 08/21/18 at 13:01; Status DC Propofol (Diprivan) 200 mg 1X ONCE IV Last administered on 08/21/18at 13:00; Start 08/21/18 at 13:00; Stop 08/21/18 at 13:01; Status DC Piperacillin Sod/ Tazobactam Sod 3.375 gm/Sodium Chloride 50 ml @ 100 mls/hr 1X ONCE IV Last administered on 08/21/18at 13:07; Start 08/21/18 at 13:00; Stop 08/21/18 at 13:29; Status DC Aspirin (Aspirin) 300 mg 1X ONCE [place] Last administered on 08/21/18at 13:09; Start 08/21/18 at 13:15; Stop 08/21/18 at 13:16; Status DC Acetaminophen (Tylenol) 650 mg PRN Q6HRS PRN PO Headaches, Temp > 101.5'; Start 08/21/18 at 13:15 Lorazepam (Ativan) 0.5 mg PRN Q6HRS PRN IV ANXIETY / AGITATION Last administered on 08/22/18 20:55; Start 08/21/18 at 13:15 Ondansetron HCl (Zofran) 4 mg PRN Q6HRS PRN IV NAUSEA/VOMITING; Start 08/21/18 at 13:15 Famotidine (Pepcid Vial) 20 mg BID IVP Last administered on 08/23/18 08:29; Start 08/21/18 at 21:00 Info (Icu Electrolyte Protocol) 1 ea DAILY MC Last administered on 08/23/18 08: 38; Start 08/22/18 at 09:00 Heparin Sodium (Porcine) (Heparin Sodium) 5,000 unit Q12HR SQ Last administered on 08/21/18 20:49; Start 08/21/18 at 14:00; Stop 08/22/18 at 06:55; Status DC Sodium Chloride (Normal Saline Flush) 3 ml QSHIFT PRN IV AFTER MEDS AND BLOOD DRAWS; Start 08/21/18 at 13:15 Acetaminophen/ Hydrocodone Bitart (Lortab 5/325) 1 tab PRN Q4HRS PRN PO MILD PAIN; Start 08/21/18 at 13:15 Morphine Sulfate (Morphine Sulfate) 2 mg PRN Q1HR PRN IV PAIN; Start 08/21/18 at 13:15; Stop 08/21/18 at 14:28; Status DC Lactulose (Lactulose) 20 gm PRN Q12HR PRN PO CONSTIPATION; Start 08/21/18 at 13: 15 Atorvastatin Calcium (Lipitor) 10 mg QHS PO Last administered on 08/22/18 20:55 ; Start 08/21/18 at 21:00 Metoprolol Succinate (Toprol Xl) 25 mg DAILY PO ; Start 08/22/18 at 09:00 Lisinopril (Prinivil) 2.5 mg DAILY PO ; Start 08/21/18 at 14:00 Furosemide (Lasix) 40 mg DAILY IVP Last administered on 08/23/18 08:29; Start 08/22/18 at 09:00 Furosemide (Lasix) 40 mg 1X ONCE IVP Last administered on 08/21/18 19:45; Start 08/21/18 at 20:00; Stop 08/21/18 at 20:01; Status DC Etomidate (Amidate) 20 mg STK-MED ONCE IV ; Start 08/21/18 at 14:01; Stop at 14:02; Status DC Rocuronium [place] (Zemuron) 50 mg STK-MED ONCE .ROUTE ; Start 08/21/18 at 14:01 ; Stop 08/21/18 at 14:02; Status DC Propofol 100 ml @ 2.205 mls/ hr CONT PRN IV SEE PROTOCOL Last administered on 08/21/18at 15:53; Start 08/21/18 at 14:30 Fentanyl Citrate (Fentanyl 2ml Vial) 25 mcg PRN Q1HR PRN IV SEE COMMENTS; Start 08/21/18 at 14:30 Fentanyl Citrate (Fentanyl 2ml Vial) 50 mcg PRN Q1HR PRN IV SEE COMMENTS Last administered on 08/21/18at 15:56; Start 08/21/18 at 14:30 Chlorhexidine Gluconate (Peridex) 15 ml BID MM Last administered on 08/21/18at 20 :49; Start 08/21/18 at 21:00; Stop 08/22/18 at 07:41; Status DC Artificial Tears (Artificial Tears) 1 drop PRN Q1HR PRN OU DRY EYE; Start at 14:30 Morphine Sulfate (Morphine Sulfate) 2 mg PRN Q1HR PRN IV SEE COMMENTS.; Start 08/21/18 at 14:30 Morphine Sulfate (Morphine Sulfate) 4 mg PRN Q1HR PRN IV SEE COMMENTS.; Start 08/21/18 at 14:30 Norepinephrine Bitartrate 250 ml @ 1.875 mls/ hr CONT PRN IV SEE I/O RECORD Last administered on 08/22/18at 20:55; Start 08/21/18 at 15:30 Midazolam HCl 100 ml @ 5 mls/hr CONT PRN IV SEE I/O RECORD Last administered on 08/22/18at 17:55; Start 08/21/18 at 15:30 Albuterol/ Ipratropium (Duoneb) 3 ml RTQID NEB Last administered on 08/23/18at 07 :43; Start 08/21/18 at 20:00 Methylprednisolone Sodium Succinate (SOLU-Medrol 40MG VIAL) 40 mg Q12HR IV Last administered on 08/23/18at 08:29; Start 08/21/18 at 21:00 Fentanyl Citrate 30 ml @ 0 mls/hr CONT PRN PRN IV PER PROTOCOL Last administered on 08/23/18at 00:02; Start 08/21/18 at 17:45 Enoxaparin Sodium (Lovenox 40mg Syringe) 40 mg Q24H SQ Last administered on 08/23at 05:14; Start 08/22/18 at 07:00 Piperacillin Sod/ Tazobactam Sod 3.375 gm/Sodium Chloride 50 ml @ 100 mls/hr Q6HRS IV Last administered on 08/23/18at 05:14; Start 08/22/18 at 07:00 Active Scripts Active Atorvastatin Calcium 10 Mg Tablet 1 Tab PO DAILY Lisinopril 2.5 Mg Tablet 1 Tab PO DAILY Metoprolol Succinate ( Xl ) (Metoprolol Succinate) 25 Mg Tab.er.24h 1 Tab PO DAILY Prednisone 20 Mg Tablet 20 Mg PO DAILY 5 Days Reported No Known Medications Prior To Admisstion (Info) Each 1 Each 1X Vitals/I & O Vital Sign - Last 24 Hours 08/22/18 08/22/18 08/22/18 08/22/18 10:00 10:20 11:00 11:09 Pulse 96 96 90 Resp 20 20 20 B/P (MAP) 92/56 (68) 92/56 (68) 111/75 (87) Pulse Ox 99 99 99 O2 Delivery Ventilator Ventilator Ventilator Ventilator 08/22/18 08/22/18 08/22/18 08/22/18 11:35 12:00 12:00 13:00 Temp 97.6 97.6 Pulse 94 91 Resp 20 20 B/P (MAP) 103/67 (79) 97/60 (72) Pulse Ox 99 100 100 O2 Delivery Ventilator Ventilator Mechanical Ventilator Ventilator 08/22/18 08/22/18 08/22/18 08/22/18 13:46 14:00 15:00 16:00 Pulse 88 83 Resp 20 20 B/P (MAP) 104/62 (76) 105/67 (80) Pulse Ox 98 97 99 O2 Delivery Ventilator Ventilator Ventilator Mechanical Ventilator 08/22/18 08/22/18 08/22/18 08/22/18 16:00 16:30 16:45 17:00 Temp 97.7 97.7 Pulse 81 88 80 81 Resp 20 20 B/P (MAP) 109/65 (80) 108/63 (78) 104/61 (75) 127/73 (91) Pulse Ox 100 100 O2 Delivery Ventilator Ventilator 08/22/18 08/22/18 08/22/18 08/22/18 17:15 17:30 17:45 18:00 Pulse 84 82 77 76 Resp 20 B/P (MAP) 104/64 (77) 112/68 (83) 93/59 (70) 93/57 (69) Pulse Ox 98 O2 Delivery Ventilator 08/22/18 08/22/18 08/22/18 08/22/18 19:00 20:00 20:00 20:29 Temp 98.6 98.6 Pulse 77 81 Resp 20 20 B/P (MAP) 98/67 (77) 102/63 (76) Pulse Ox 98 100 99 O2 Delivery Ventilator Mechanical Ventilator Ventilator Ventilator 08/22/18 08/22/18 08/22/18 08/22/18 21:00 21:03 22:00 23:00 Pulse 76 67 68 Resp 20 20 20 B/P (MAP) 107/61 (76) 92/61 (71) 92/60 (71) Pulse Ox 99 99 100 100 O2 Delivery Ventilator Ventilator Ventilator Ventilator 08/22/18 08/23/18 08/23/18 08/23/18 23:30 00:00 00:00 00:02 Temp 98.5 98.5 Pulse 67 Resp 19 20 B/P (MAP) 86/55 (65) Pulse Ox 99 100 O2 Delivery Ventilator Mechanical Ventilator Ventilator Ventilator 08/23/18 08/23/18 08/23/18 08/23/18 00:35 01:00 01:45 02:00 Pulse 71 67 Resp 19 19 20 B/P (MAP) 101/65 (77) 96/62 (73) Pulse Ox 99 99 99 99 O2 Delivery Ventilator Ventilator Ventilator Ventilator 08/23/18 08/23/18 08/23/18 08/23/18 03:00 04:00 04:00 04:40 Temp 98.6 98.6 Pulse 64 55 Resp 20 20 B/P (MAP) 103/66 (78) 90/56 (67) Pulse Ox 100 100 99 O2 Delivery Ventilator Ventilator Mechanical Ventilator Ventilator 08/23/18 08/23/18 08/23/18 08/23/18 05:00 06:00 07:00 07:37 Pulse 60 63 62 62 Resp 19 19 20 B/P (MAP) 93/63 (73) 98/65 (76) 95/66 (76) 95/66 Pulse Ox 99 100 99 O2 Delivery Ventilator Ventilator Ventilator 08/23/18 08/23/18 08/23/18 08/23/18 07:37 07:43 08:00 08:00 Temp 98.7 98.7 Pulse 62 62 Resp 20 B/P (MAP) 95/66 97/61 (73) Pulse Ox 99 99 O2 Delivery Ventilator Ventilator Mechanical Ventilator 08/23/18 08/23/18 09:00 09:15 Pulse 67 65 Resp 20 B/P (MAP) 108/73 (85) 109/75 (86) Pulse Ox 99 O2 Delivery Ventilator Intake and Output 08/22/18 08/22/18 08/23/18 15:00 23:00 07:00 Intake Total 100 ml 412.48 ml 262.8 ml Output Total 1149 ml 375 ml 385 ml Balance -1049 ml 37.48 ml -122.2 ml POP PARKS MD Aug 23, 2018 09:56
--- NOTE | 2018-08-23 10:57 | PDOC ---
PULMONARY PROGRESS NOTES Subjective FULLY AWAKE, ON AC MODE OFF PRESSOR Vitals Vital Signs Date Time Temp Pulse Resp B/P (MAP) Pulse Ox O2 Delivery O2 Flow Rate FiO2 08/23/18 10:20 99 Ventilator 08/23/18 10:00 70 20 110/77 (88) 08/23/18 08:00 98.7 98.7 08/22/18 08:00 General: Alert, No acute distress Lungs: Clear Cardiovascular: S1, S2 Abdomen: Soft Neuro Exam: Alert Extremities: No Edema Skin: Warm Labs Laboratory Tests Test 08/21/18 12:29 08/21/18 12:30 08/21/18 12:33 08/21/18 16:00 O2 Saturation 90 % (92-99) 100 % (92-99) Arterial Blood pH 7.10 (7.35-7.45) 7.34 (7.35-7.45) Arterial Blood pCO2 at Patient Temp 45 mmHg (35-46) 43 mmHg (35-46) Arterial Blood pO2 at Patient Temp 76 mmHg (75-108) 362 mmHg (75-108) Arterial Blood HCO3 14 mmol/L (21-28) 23 mmol/L (21-28) Arterial Blood Base Excess -16 mmol/L (-3-3) -3 mmol/L (-3-3) FiO2 100% 100 White Blood Count 14.9 x10^3/uL (4.0-11.0) Red Blood Count 4.91 x10^6/uL (4.30-5.70) Hemoglobin 15.0 g/dL (13.0-17.5) Hematocrit 47.0 % (39.0-53.0) Mean Corpuscular Volume 96 fL (79-100) Mean Corpuscular Hemoglobin 31 pg (25-35) Mean Corpuscular Hemoglobin Concent 32 g/dL (31-37) Red Cell Distribution Width 14.8 % (11.5-14.5) Platelet Count 241 x10^3/uL (140-400) Neutrophils (%) (Auto) 62 % (31-73) Lymphocytes (%) (Auto) 31 % (24-48) Monocytes (%) (Auto) 4 % (0-9) Eosinophils (%) (Auto) 2 % (0-3) Basophils (%) (Auto) 1 % (0-3) Neutrophils # (Auto) 9.2 x10^3uL (1.8-7.7) Lymphocytes # (Auto) 4.6 x10^3/uL (1.0-4.8) Monocytes # (Auto) 0.6 x10^3/uL (0.0-1.1) Eosinophils # (Auto) 0.3 x10^3/uL (0.0-0.7) Basophils # (Auto) 0.1 x10^3/uL (0.0-0.2) Prothrombin Time 13.9 SEC (11.7-14.0) Prothromb Time International Ratio 1.1 (0.8-1.1) Sodium Level 141 mmol/L (136-145) Potassium Level 3.8 mmol/L (3.5-5.1) Chloride Level 102 mmol/L (98-107) Carbon Dioxide Level 20 mmol/L (21-32) Anion Gap 19 (6-14) Blood Urea Nitrogen 17 mg/dL (8-26) Creatinine 1.6 mg/dL (0.7-1.3) Estimated GFR (Cockcroft-Gault) 45.3 BUN/Creatinine Ratio 11 (6-20) Glucose Level 296 mg/dL (70-99) Hemoglobin A1c 5.4 % (4.8-5.6) Lactic Acid Level 8.1 mmol/L (0.4-2.0) Calcium Level 9.1 mg/dL (8.5-10.1) Magnesium Level 2.5 mg/dL (1.8-2.4) Total Bilirubin 0.4 mg/dL (0.2-1.0) Aspartate Amino Transf (AST/SGOT) 40 U/L (15-37) Alanine Aminotransferase (ALT/SGPT) 42 U/L (16-63) Alkaline Phosphatase 94 U/L (46-116) Troponin I Quantitative 0.065 ng/mL (0.000-0.055) MY-Xvp-G-Type Natriuretic Peptide 3115 pg/mL (0-124) Total Protein 7.6 g/dL (6.4-8.2) Albumin 4.4 g/dL (3.4-5.0) Albumin/Globulin Ratio 1.4 (1.0-1.7) Bedside Troponin I 0.05 ng/ml (<0.08) Test 08/21/18 16:35 08/21/18 19:15 08/21/18 20:30 08/22/18 00:46 Lactic Acid Level 1.5 mmol/L (0.4-2.0) Troponin I Quantitative 0.056 ng/mL (0.000-0.055) 0.045 ng/mL (0.000-0.055) Nasal Screen MRSA (PCR) Negative (Negative) Glucose (Fingerstick) 104 mg/dL (70-99) Test 08/22/18 03:30 08/22/18 03:33 08/22/18 08:00 08/22/18 10:00 Sodium Level 142 mmol/L (136-145) Potassium Level 3.7 mmol/L (3.5-5.1) Chloride Level 103 mmol/L (98-107) Carbon Dioxide Level 25 mmol/L (21-32) Anion Gap 14 (6-14) Blood Urea Nitrogen 21 mg/dL (8-26) Creatinine 1.0 mg/dL (0.7-1.3) Estimated GFR (Cockcroft-Gault) 77.9 Glucose Level 140 mg/dL (70-99) Calcium Level 8.9 mg/dL (8.5-10.1) Procalcitonin < 0.10 ng/mL (0.00-0.10) White Blood Count 13.8 x10^3/uL (4.0-11.0) Red Blood Count 4.89 x10^6/uL (4.30-5.70) Hemoglobin 14.8 g/dL (13.0-17.5) Hematocrit 45.0 % (39.0-53.0) Mean Corpuscular Volume 92 fL (79-100) Mean Corpuscular Hemoglobin 30 pg (25-35) Mean Corpuscular Hemoglobin Concent 33 g/dL (31-37) Red Cell Distribution Width 13.8 % (11.5-14.5) Platelet Count 240 x10^3/uL (140-400) Neutrophils (%) (Auto) 95 % (31-73) Lymphocytes (%) (Auto) 4 % (24-48) Monocytes (%) (Auto) 1 % (0-9) Eosinophils (%) (Auto) 0 % (0-3) Basophils (%) (Auto) 0 % (0-3) Neutrophils # (Auto) 13.0 x10^3uL (1.8-7.7) Lymphocytes # (Auto) 0.6 x10^3/uL (1.0-4.8) Monocytes # (Auto) 0.2 x10^3/uL (0.0-1.1) Eosinophils # (Auto) 0.0 x10^3/uL (0.0-0.7) Basophils # (Auto) 0.0 x10^3/uL (0.0-0.2) Segmented Neutrophils % 90 % (35-66) Band Neutrophils % 3 % (0-9) Lymphocytes % 5 % (24-48) Monocytes % 2 % (0-10) Platelet Estimate Adequate (ADEQUATE) O2 Saturation 98 % (92-99) Arterial Blood pH 7.39 (7.35-7.45) Arterial Blood pCO2 at Patient Temp 39 mmHg (35-46) Arterial Blood pO2 at Patient Temp 108 mmHg (75-108) Arterial Blood HCO3 23 mmol/L (21-28) Arterial Blood Base Excess -2 mmol/L (-3-3) FiO2 40 Influenza Type A Antigen Negative (NEGATIVE) Influenza Type B Antigen Negative (NEGATIVE) Test 08/22/18 11:59 Glucose (Fingerstick) 125 mg/dL (70-99) Laboratory Tests Test 08/22/18 11:59 Glucose (Fingerstick) 125 mg/dL (70-99) Medications Active Scripts Medications Dose Route/Sig Max Daily Dose Days Date Category Atorvastatin Calcium 10 Mg Tablet 1 Tab PO DAILY 06/28/18 Rx Lisinopril 2.5 Mg Tablet 1 Tab PO DAILY 06/28/18 Rx Metoprolol Succinate ( Xl ) (Metoprolol Succinate) 25 Mg Tab.er.24h 1 Tab PO DAILY 06/28/18 Rx Prednisone 20 Mg Tablet 20 Mg PO DAILY 5 06/28/18 Rx No Known Medications Prior To Admisstion (Info) Each 1 Each 1X 05/19/18 Reported Comments CXR 08/23 RESOLVED CHF Impression . 1. Acute hypoxemic respiratory failure, multifactorial in etiology including acute on chronic systolic congestive heart failure, and acute exacerbation of chronic obstructive pulmonary disease 2. Abnormal chest x-ray./ resolved padmini-hilar edema 3. Acute systolic congestive heart failure. 4. Acute exacerbation of chronic obstructive pulmonary disease. 5. Tobacco habituation. 6. Hypotension, questionable etiology, likely related to sedation, resolved 7. Lactic acidosis, resolved. Plan . 1. Awake ,following commands. will start CPAP trial 2. Likely extubation today 3. Keep intake less than output. Agree with Lasix. Monitor creatinine and potassium. 4. Continue antibiotic. 5. Solu-Medrol taper 6. Bronchodilator. 7. Lovenox for DVT prophylaxis. 8. Pepcid for stress ulcer prophylaxis. 9. Review ABG and portable chest x-ray. 12. Follow up blood cultures. Send the sputum for Gram stain and culture. 13. Monitor respiratory status very closely. d/w RN/RT GARCIA KOCH MD Aug 23, 2018 10:57
[2018-08-23 11:26] LABS: BASE EXCESS ABG 2 mmol/L (-3-3); HCO3 ABG 27 mmol/L (21-28); PCO2 ABG 44 mmHg (35-46); PO2 ABG 96 mmHg (75-108); SAT O2 ABG 97 % (92-99)
--- NOTE | 2018-08-23 12:00 | NUR ---
Patient extubated at 1153 to 3L NC.
--- NOTE | 2018-08-23 12:02 | PDOC ---
PROGRESS NOTES Subjective Subjective Patient seen and examined The patient remains on a ventilator but is more alert. Objective Objective Vital Signs Date Time Temp Pulse Resp B/P (MAP) Pulse Ox O2 Delivery O2 Flow Rate FiO2 08/23/18 11:35 99 Ventilator 08/23/18 11:00 70 16 116/72 (87) 08/23/18 08:00 98.7 98.7 08/22/18 08:00 Intake and Output 08/23/18 07:00 Intake Total 775.28 ml Output Total 1909 ml Balance -1133.72 ml Intake Oral 0 ml IV Total 775.28 ml Output Urine Total 1909 ml Physical Exam Abdomen: Normal bowel sounds Heart: Regular rate General: Other (intubated.) Lungs: Other (mildly decreased breath sounds) Assessment Assessment Problems Medical Problems: (1) Pulmonary edema Status: Acute 1. Acute on chronic respiratory failure with acute CHF and AECOPD. The patient remains on the ventilator but is improving. Updated echocardiogram shows an ejection fraction of 35-40% with moderate mitral regurgitation. Continuing present treatment. 2. Moderate mitral regurgitation. Continue present treatments. 3. Cardiomyopathy: Updated ejection fraction of 35-40%. 4. Acute on chronic systolic CHF: multifactorial with noncompliance, MR and COPD. 5. Heavy tobaccoism 6. HTN: controlled 7. Severe noncompliance. Comment Review of Relevant I have reviewed the following items holly (where applicable) has been applied. Labs Laboratory Tests Test 08/21/18 12:29 08/21/18 12:30 08/21/18 12:33 08/21/18 16:00 O2 Saturation 90 % (92-99) 100 % (92-99) Arterial Blood pH 7.10 (7.35-7.45) 7.34 (7.35-7.45) Arterial Blood pCO2 at Patient Temp 45 mmHg (35-46) 43 mmHg (35-46) Arterial Blood pO2 at Patient Temp 76 mmHg (75-108) 362 mmHg (75-108) Arterial Blood HCO3 14 mmol/L (21-28) 23 mmol/L (21-28) Arterial Blood Base Excess -16 mmol/L (-3-3) -3 mmol/L (-3-3) FiO2 100% 100 White Blood Count 14.9 x10^3/uL (4.0-11.0) Red Blood Count 4.91 x10^6/uL (4.30-5.70) Hemoglobin 15.0 g/dL (13.0-17.5) Hematocrit 47.0 % (39.0-53.0) Mean Corpuscular Volume 96 fL (79-100) Mean Corpuscular Hemoglobin 31 pg (25-35) Mean Corpuscular Hemoglobin Concent 32 g/dL (31-37) Red Cell Distribution Width 14.8 % (11.5-14.5) Platelet Count 241 x10^3/uL (140-400) Neutrophils (%) (Auto) 62 % (31-73) Lymphocytes (%) (Auto) 31 % (24-48) Monocytes (%) (Auto) 4 % (0-9) Eosinophils (%) (Auto) 2 % (0-3) Basophils (%) (Auto) 1 % (0-3) Neutrophils # (Auto) 9.2 x10^3uL (1.8-7.7) Lymphocytes # (Auto) 4.6 x10^3/uL (1.0-4.8) Monocytes # (Auto) 0.6 x10^3/uL (0.0-1.1) Eosinophils # (Auto) 0.3 x10^3/uL (0.0-0.7) Basophils # (Auto) 0.1 x10^3/uL (0.0-0.2) Prothrombin Time 13.9 SEC (11.7-14.0) Prothromb Time International Ratio 1.1 (0.8-1.1) Sodium Level 141 mmol/L (136-145) Potassium Level 3.8 mmol/L (3.5-5.1) Chloride Level 102 mmol/L (98-107) Carbon Dioxide Level 20 mmol/L (21-32) Anion Gap 19 (6-14) Blood Urea Nitrogen 17 mg/dL (8-26) Creatinine 1.6 mg/dL (0.7-1.3) Estimated GFR (Cockcroft-Gault) 45.3 BUN/Creatinine Ratio 11 (6-20) Glucose Level 296 mg/dL (70-99) Hemoglobin A1c 5.4 % (4.8-5.6) Lactic Acid Level 8.1 mmol/L (0.4-2.0) Calcium Level 9.1 mg/dL (8.5-10.1) Magnesium Level 2.5 mg/dL (1.8-2.4) Total Bilirubin 0.4 mg/dL (0.2-1.0) Aspartate Amino Transf (AST/SGOT) 40 U/L (15-37) Alanine Aminotransferase (ALT/SGPT) 42 U/L (16-63) Alkaline Phosphatase 94 U/L (46-116) Troponin I Quantitative 0.065 ng/mL (0.000-0.055) MP-Ejk-A-Type Natriuretic Peptide 3115 pg/mL (0-124) Total Protein 7.6 g/dL (6.4-8.2) Albumin 4.4 g/dL (3.4-5.0) Albumin/Globulin Ratio 1.4 (1.0-1.7) Bedside Troponin I 0.05 ng/ml (<0.08) Test 08/21/18 16:35 08/21/18 19:15 08/21/18 20:30 08/22/18 00:46 Lactic Acid Level 1.5 mmol/L (0.4-2.0) Troponin I Quantitative 0.056 ng/mL (0.000-0.055) 0.045 ng/mL (0.000-0.055) Nasal Screen MRSA (PCR) Negative (Negative) Glucose (Fingerstick) 104 mg/dL (70-99) Test 08/22/18 03:30 08/22/18 03:33 08/22/18 08:00 08/22/18 10:00 Sodium Level 142 mmol/L (136-145) Potassium Level 3.7 mmol/L (3.5-5.1) Chloride Level 103 mmol/L (98-107) Carbon Dioxide Level 25 mmol/L (21-32) Anion Gap 14 (6-14) Blood Urea Nitrogen 21 mg/dL (8-26) Creatinine 1.0 mg/dL (0.7-1.3) Estimated GFR (Cockcroft-Gault) 77.9 Glucose Level 140 mg/dL (70-99) Calcium Level 8.9 mg/dL (8.5-10.1) Procalcitonin < 0.10 ng/mL (0.00-0.10) White Blood Count 13.8 x10^3/uL (4.0-11.0) Red Blood Count 4.89 x10^6/uL (4.30-5.70) Hemoglobin 14.8 g/dL (13.0-17.5) Hematocrit 45.0 % (39.0-53.0) Mean Corpuscular Volume 92 fL (79-100) Mean Corpuscular Hemoglobin 30 pg (25-35) Mean Corpuscular Hemoglobin Concent 33 g/dL (31-37) Red Cell Distribution Width 13.8 % (11.5-14.5) Platelet Count 240 x10^3/uL (140-400) Neutrophils (%) (Auto) 95 % (31-73) Lymphocytes (%) (Auto) 4 % (24-48) Monocytes (%) (Auto) 1 % (0-9) Eosinophils (%) (Auto) 0 % (0-3) Basophils (%) (Auto) 0 % (0-3) Neutrophils # (Auto) 13.0 x10^3uL (1.8-7.7) Lymphocytes # (Auto) 0.6 x10^3/uL (1.0-4.8) Monocytes # (Auto) 0.2 x10^3/uL (0.0-1.1) Eosinophils # (Auto) 0.0 x10^3/uL (0.0-0.7) Basophils # (Auto) 0.0 x10^3/uL (0.0-0.2) Segmented Neutrophils % 90 % (35-66) Band Neutrophils % 3 % (0-9) Lymphocytes % 5 % (24-48) Monocytes % 2 % (0-10) Platelet Estimate Adequate (ADEQUATE) O2 Saturation 98 % (92-99) Arterial Blood pH 7.39 (7.35-7.45) Arterial Blood pCO2 at Patient Temp 39 mmHg (35-46) Arterial Blood pO2 at Patient Temp 108 mmHg (75-108) Arterial Blood HCO3 23 mmol/L (21-28) Arterial Blood Base Excess -2 mmol/L (-3-3) FiO2 40 Influenza Type A Antigen Negative (NEGATIVE) Influenza Type B Antigen Negative (NEGATIVE) Test 08/22/18 11:59 Glucose (Fingerstick) 125 mg/dL (70-99) Microbiology 08/21/18 Blood Culture - Preliminary, Resulted NO GROWTH AFTER 1 DAY Medications Current Medications Albuterol/ Ipratropium (Duoneb) 3 ml 1X ONCE NEB Last administered on at 15:56; Start 08/21/18 at 12:30; Stop 08/21/18 at 12:33; Status DC Aspirin (Children'S Aspirin) 324 mg 1X ONCE PO ; Start 08/21/18 at 12:45; Stop 08/21/18 at 12:46; Status DC Propofol 50 ml @ As Directed STK-MED ONCE IV ; Start 08/21/18 at 12:50; Stop 08/21 at 12:51; Status DC Furosemide (Lasix) 40 mg 1X ONCE IVP Last administered on 08/21/18at 13:04; Start 08/21/18 at 13:00; Stop 08/21/18 at 13:01; Status DC Propofol (Diprivan) 200 mg 1X ONCE IV Last administered on 08/21/18 13:00; Start 08/21/18 at 13:00; Stop 08/21/18 at 13:01; Status DC Piperacillin Sod/ Tazobactam Sod 3.375 gm/Sodium Chloride 50 ml @ 100 mls/hr 1X ONCE IV Last administered on 08/21/18 13:07; Start 08/21/18 at 13:00; Stop 08/21/18 at 13:29; Status DC Aspirin (Aspirin) 300 mg 1X ONCE [place] Last administered on 08/21/18 13:09; Start 08/21/18 at 13:15; Stop 08/21/18 at 13:16; Status DC Acetaminophen (Tylenol) 650 mg PRN Q6HRS PRN PO Headaches, Temp > 101.5'; Start 08/21/18 at 13:15 Lorazepam (Ativan) 0.5 mg PRN Q6HRS PRN IV ANXIETY / AGITATION Last administered on 08/22/18at 20:55; Start 08/21/18 at 13:15 Ondansetron HCl (Zofran) 4 mg PRN Q6HRS PRN IV NAUSEA/VOMITING; Start 08/21/18 at 13:15 Famotidine (Pepcid Vial) 20 mg BID IVP Last administered on 08/23/18at 08:29; Start 08/21/18 at 21:00 Info (Icu Electrolyte Protocol) 1 ea DAILY MC Last administered on 4/7/19at 08: 38; Start 08/22/18 at 09:00 Heparin Sodium (Porcine) (Heparin Sodium) 5,000 unit Q12HR SQ Last administered on 08/21/18at 20:49; Start 08/21/18 at 14:00; Stop 08/22/18 at 06:55; Status DC Sodium Chloride (Normal Saline Flush) 3 ml QSHIFT PRN IV AFTER MEDS AND BLOOD DRAWS; Start 08/21/18 at 13:15 Acetaminophen/ Hydrocodone Bitart (Lortab 5/325) 1 tab PRN Q4HRS PRN PO MILD PAIN; Start 08/21/18 at 13:15 Morphine Sulfate (Morphine Sulfate) 2 mg PRN Q1HR PRN IV PAIN; Start 08/21/18 at 13:15; Stop 08/21/18 at 14:28; Status DC Lactulose (Lactulose) 20 gm PRN Q12HR PRN PO CONSTIPATION; Start 08/21/18 at 13: 15 Atorvastatin Calcium (Lipitor) 10 mg QHS PO Last administered on 08/22/18at 20:55 ; Start 08/21/18 at 21:00 Metoprolol Succinate (Toprol Xl) 25 mg DAILY PO ; Start 08/22/18 at 09:00 Lisinopril (Prinivil) 2.5 mg DAILY PO ; Start 08/21/18 at 14:00 Furosemide (Lasix) 40 mg DAILY IVP Last administered on 08/23/18at 08:29; Start 08/22/18 at 09:00 Furosemide (Lasix) 40 mg 1X ONCE IVP Last administered on 08/21/18at 19:45; Start 08/21/18 at 20:00; Stop 08/21/18 at 20:01; Status DC Etomidate (Amidate) 20 mg STK-MED ONCE IV ; Start 08/21/18 at 14:01; Stop at 14:02; Status DC Rocuronium [place] (Zemuron) 50 mg STK-MED ONCE .ROUTE ; Start 08/21/18 at 14:01 ; Stop 08/21/18 at 14:02; Status DC Propofol 100 ml @ 2.205 mls/ hr CONT PRN IV SEE PROTOCOL Last administered on 08/21/18at 15:53; Start 08/21/18 at 14:30 Fentanyl Citrate (Fentanyl 2ml Vial) 25 mcg PRN Q1HR PRN IV SEE COMMENTS; Start 08/21/18 at 14:30 Fentanyl Citrate (Fentanyl 2ml Vial) 50 mcg PRN Q1HR PRN IV SEE COMMENTS Last administered on 08/21/18 15:56; Start 08/21/18 at 14:30 Chlorhexidine Gluconate (Peridex) 15 ml BID MM Last administered on 08/21/18 20 :49; Start 08/21/18 at 21:00; Stop 08/22/18 at 07:41; Status DC Artificial Tears (Artificial Tears) 1 drop PRN Q1HR PRN OU DRY EYE; Start at 14:30 Morphine Sulfate (Morphine Sulfate) 2 mg PRN Q1HR PRN IV SEE COMMENTS.; Start 08/21/18 at 14:30 Morphine Sulfate (Morphine Sulfate) 4 mg PRN Q1HR PRN IV SEE COMMENTS.; Start 08/21/18 at 14:30 Norepinephrine Bitartrate 250 ml @ 1.875 mls/ hr CONT PRN IV SEE I/O RECORD Last administered on 08/22/18at 20:55; Start 08/21/18 at 15:30 Midazolam HCl 100 ml @ 5 mls/hr CONT PRN IV SEE I/O RECORD Last administered on 08/22/18 17:55; Start 08/21/18 at 15:30 Albuterol/ Ipratropium (Duoneb) 3 ml RTQID NEB Last administered on 08/23/18 11 :34; Start 08/21/18 at 20:00 Methylprednisolone Sodium Succinate (SOLU-Medrol 40MG VIAL) 40 mg Q12HR IV Last administered on 08/23/18 08:29; Start 08/21/18 at 21:00 Fentanyl Citrate 30 ml @ 0 mls/hr CONT PRN PRN IV PER PROTOCOL Last administered on 08/23/18 00:02; Start 08/21/18 at 17:45 Enoxaparin Sodium (Lovenox 40mg Syringe) 40 mg Q24H SQ Last administered on 08/23 05:14; Start 08/22/18 at 07:00 Piperacillin Sod/ Tazobactam Sod 3.375 gm/Sodium Chloride 50 ml @ 100 mls/hr Q6HRS IV Last administered on 4/7/19at 11:44; Start 08/22/18 at 07:00 Active Scripts Active Atorvastatin Calcium 10 Mg Tablet 1 Tab PO DAILY Lisinopril 2.5 Mg Tablet 1 Tab PO DAILY Metoprolol Succinate ( Xl ) (Metoprolol Succinate) 25 Mg Tab.er.24h 1 Tab PO DAILY Prednisone 20 Mg Tablet 20 Mg PO DAILY 5 Days Reported No Known Medications Prior To Admisstion (Info) Each 1 Each MC 1X Vitals/I & O Vital Sign - Last 24 Hours 08/22/18 08/22/18 08/22/18 08/22/18 13:00 13:46 14:00 15:00 Pulse 91 88 83 Resp 20 20 20 B/P (MAP) 97/60 (72) 104/62 (76) 105/67 (80) Pulse Ox 100 98 97 99 O2 Delivery Ventilator Ventilator Ventilator Ventilator 08/22/18 08/22/18 08/22/18 08/22/18 16:00 16:00 16:30 16:45 Temp 97.7 97.7 Pulse 81 88 80 Resp 20 B/P (MAP) 109/65 (80) 108/63 (78) 104/61 (75) Pulse Ox 100 O2 Delivery Mechanical Ventilator Ventilator 08/22/18 08/22/18 08/22/18 08/22/18 17:00 17:15 17:30 17:45 Pulse 81 84 82 77 Resp 20 B/P (MAP) 127/73 (91) 104/64 (77) 112/68 (83) 93/59 (70) Pulse Ox 100 O2 Delivery Ventilator 08/22/18 08/22/18 08/22/18 08/22/18 18:00 19:00 20:00 20:00 Temp 98.6 98.6 Pulse 76 77 81 Resp 20 20 20 B/P (MAP) 93/57 (69) 98/67 (77) 102/63 (76) Pulse Ox 98 98 100 O2 Delivery Ventilator Ventilator Mechanical Ventilator Ventilator 08/22/18 08/22/18 08/22/18 08/22/18 20:29 21:00 21:03 22:00 Pulse 76 67 Resp 20 20 B/P (MAP) 107/61 (76) 92/61 (71) Pulse Ox 99 99 99 100 O2 Delivery Ventilator Ventilator Ventilator Ventilator 08/22/18 08/22/18 08/23/1819 23:00 23:30 00:00 00:00 Temp 98.5 98.5 Pulse 68 67 Resp 20 19 B/P (MAP) 92/60 (71) 86/55 (65) Pulse Ox 100 99 O2 Delivery Ventilator Ventilator Mechanical Ventilator Ventilator 08/23/18 08/23/18 08/23/18 08/23/18 00:02 00:35 01:00 01:45 Pulse 71 Resp 20 19 19 B/P (MAP) 101/65 (77) Pulse Ox 100 99 99 99 O2 Delivery Ventilator Ventilator Ventilator Ventilator 08/23/18 08/23/18 08/23/18 08/23/18 02:00 03:00 04:00 04:00 Temp 98.6 98.6 Pulse 67 64 55 Resp 20 20 20 B/P (MAP) 96/62 (73) 103/66 (78) 90/56 (67) Pulse Ox 99 100 100 O2 Delivery Ventilator Ventilator Ventilator Mechanical Ventilator 08/23/18 08/23/18 08/23/18 08/23/18 04:40 05:00 06:00 07:00 Pulse 60 63 62 Resp 19 19 20 B/P (MAP) 93/63 (73) 98/65 (76) 95/66 (76) Pulse Ox 99 99 100 99 O2 Delivery Ventilator Ventilator Ventilator Ventilator 08/23/18 08/23/18 08/23/18 08/23/18 07:37 07:37 07:43 08:00 Temp 98.7 98.7 Pulse 62 62 62 Resp 20 B/P (MAP) 95/66 95/66 97/61 (73) Pulse Ox 99 99 O2 Delivery Ventilator Ventilator 08/23/18 08/23/18 08/23/18 08/23/18 08:00 09:00 09:15 09:30 Pulse 67 65 66 Resp 20 B/P (MAP) 108/73 (85) 109/75 (86) 106/71 (83) Pulse Ox 99 O2 Delivery Mechanical Ventilator Ventilator 08/23/18 08/23/18 08/23/18 08/23/18 09:45 10:00 10:20 11:00 Pulse 68 70 70 Resp 20 16 B/P (MAP) 103/65 (78) 110/77 (88) 116/72 (87) Pulse Ox 98 99 98 O2 Delivery Ventilator Ventilator Ventilator 08/23/18 11:35 Pulse Ox 99 O2 Delivery Ventilator Intake and Output 08/22/18 08/22/18 08/23/18 15:00 23:00 07:00 Intake Total 100 ml 412.48 ml 262.8 ml Output Total 1149 ml 375 ml 385 ml Balance -1049 ml 37.48 ml -122.2 ml JOHNATHAN STEPHENSON MD Aug 23, 2018 12:02
[2018-08-23 15:05] LABS: FIO2 ABG 40
[2018-08-23 15:10] LABS: CALCIUM 9.4 mg/dL (8.5-10.1); CREATININE 1.2 mg/dL (0.7-1.3); GFR 63.1; POTASSIUM 3.9 mmol/L (3.5-5.1)
[2018-08-23] MEDS: NICOTINE 21MG PATCH. TD SCH (16:29)
[2018-08-23] MEDS: ATORVASTATIN CALCIUM 10 MG TABLET. PO SCH (21:19)
--- NOTE | 2018-08-23 22:15 | NUR ---
At approximately this time, pts heart rate went up into 140-160's. Pt denied chest pain, soa or any other discomfort. Pt asked to bear down without change, pt asked to cough deeply, without rhythm change. Charge nurse Chasity, came in to see pt. She ordered EKG to be done. Pts BP is at 95/65 during this rhythm change. By the time RT was on the unit to perform EKG, pt had gone back into SR/ST with BBB and frequent PVC's as he had previously been. Charge nurse instructed RT not to do EKG at this time and to monitor pt.
[2018-08-24] VITALS (16 sets, daily range): BP systolic 95–124; BP diastolic 59–80
[2018-08-24] MEDS: ENOXAPARIN 40 MG/0.4 ML SYRINGE. SQ SCH ×2 (05:18→20:56)
[2018-08-24] MEDS: PIPERACILLIN/TAZOBACTAM 3.375 GM in IV NORMAL SALINE 50ML 50 ML IV SCH ×4 (05:18→11:37)
[2018-08-24] MEDS: NICOTINE 21MG PATCH. TD SCH (08:00)
[2018-08-24] MEDS: methylPREDNISolone SOD SUCC PF 40 MG/ML VIAL. IV SCH (08:01)
[2018-08-24] MEDS: LISINOPRIL 5 MG TABLET. PO SCH (08:01)
[2018-08-24] MEDS: FUROSEMIDE 40 MG/4 ML VIAL. IVP SCH (08:01)
[2018-08-24] MEDS: METOPROLOL SUCC 24HR ER 25 MG TAB.ER.24H. PO SCH (08:02)
[2018-08-24] MEDS: FAMOTIDINE 20 MG/2 ML VIAL IVP SCH ×2 (08:02→20:56)
[2018-08-24] MEDS: ELECTROLYTE (ICU) PROTOCOL. MC SCH (08:10)
[2018-08-24] MEDS: IPRATRPIUM/ALBUTEROL 0.5/2.5MG 3 ML NEBU. NEB SCH ×4 (09:35→20:02)
--- NOTE | 2018-08-24 11:14 | PDOC ---
PROGRESS NOTES Subjective Subjective Patient seen and examined The patient is extubated. He looks much better today. Objective Objective Vital Signs Date Time Temp Pulse Resp B/P (MAP) Pulse Ox O2 Delivery O2 Flow Rate FiO2 08/24/18 11:05 98.1 100 18 100/74 (83) 93 Room Air 98.1 08/23/18 14:00 3.0 Intake and Output 08/24/18 07:00 Intake Total 1390.56 ml Output Total 2072 ml Balance -681.44 ml Intake Oral 1145 ml IV Total 245.56 ml Output Urine Total 2072 ml Physical Exam Abdomen: Normal bowel sounds Heart: Regular rate General: mild distress Lungs: Other (mildly decreased breath sounds) Assessment Assessment Problems Medical Problems: (1) Pulmonary edema Status: Acute 1. Acute on chronic respiratory failure with acute CHF and AECOPD. The patient has been extubated and is feeling much better. Updated echocardiogram shows an ejection fraction of 35-40% with moderate mitral regurgitation. We will obtain a social media coordinator evaluation to help pay for the patient's home medications. 2. Moderate mitral regurgitation. Continue present treatments. 3. Cardiomyopathy: Updated ejection fraction of 35-40%. 4. Acute on chronic systolic CHF: multifactorial with noncompliance, MR and COPD. 5. Heavy tobaccoism 6. HTN: controlled 7. Severe noncompliance. Comment Review of Relevant I have reviewed the following items holly (where applicable) has been applied. Labs Laboratory Tests Test 08/22/18 11:59 08/23/18 08:00 08/23/18 11:44 08/23/18 14:45 Glucose (Fingerstick) 125 mg/dL (70-99) 107 mg/dL (70-99) O2 Saturation 97 % (92-99) Arterial Blood pH 7.41 (7.35-7.45) Arterial Blood pCO2 at Patient Temp 44 mmHg (35-46) Arterial Blood pO2 at Patient Temp 96 mmHg (75-108) Arterial Blood HCO3 27 mmol/L (21-28) Arterial Blood Base Excess 2 mmol/L (-3-3) FiO2 40 Sodium Level 145 mmol/L (136-145) Potassium Level 3.9 mmol/L (3.5-5.1) Chloride Level 105 mmol/L (98-107) Carbon Dioxide Level 29 mmol/L (21-32) Anion Gap 11 (6-14) Blood Urea Nitrogen 35 mg/dL (8-26) Creatinine 1.2 mg/dL (0.7-1.3) Estimated GFR (Cockcroft-Gault) 63.1 Glucose Level 119 mg/dL (70-99) Calcium Level 9.4 mg/dL (8.5-10.1) Laboratory Tests Test 08/23/18 11:44 08/23/18 14:45 Glucose (Fingerstick) 107 mg/dL (70-99) Sodium Level 145 mmol/L (136-145) Potassium Level 3.9 mmol/L (3.5-5.1) Chloride Level 105 mmol/L (98-107) Carbon Dioxide Level 29 mmol/L (21-32) Anion Gap 11 (6-14) Blood Urea Nitrogen 35 mg/dL (8-26) Creatinine 1.2 mg/dL (0.7-1.3) Estimated GFR (Cockcroft-Gault) 63.1 Glucose Level 119 mg/dL (70-99) Calcium Level 9.4 mg/dL (8.5-10.1) Microbiology 08/21/18 Blood Culture - Preliminary, Resulted NO GROWTH AFTER 2 DAYS 08/22/18 - Final, Resulted 08/22/18 - Final, Resulted 08/22/18 - Final, Resulted 08/22/18 Gram Stain Evaluation - Final, Resulted 08/22/18 Sputum Culture, Resulted Pending Medications Current Medications Albuterol/ Ipratropium (Duoneb) 3 ml 1X ONCE NEB Last administered on at 15:56; Start 08/21/18 at 12:30; Stop 08/21/18 at 12:33; Status DC Aspirin (Children'S Aspirin) 324 mg 1X ONCE PO ; Start 08/21/18 at 12:45; Stop 08/21/18 at 12:46; Status DC Propofol 50 ml @ As Directed STK-MED ONCE IV ; Start 08/21/18 at 12:50; Stop 08/21 at 12:51; Status DC Furosemide (Lasix) 40 mg 1X ONCE IVP Last administered on 08/21/18at 13:04; Start 08/21/18 at 13:00; Stop 08/21/18 at 13:01; Status DC Propofol (Diprivan) 200 mg 1X ONCE IV Last administered on 08/21/18at 13:00; Start 08/21/18 at 13:00; Stop 08/21/18 at 13:01; Status DC Piperacillin Sod/ Tazobactam Sod 3.375 gm/Sodium Chloride 50 ml @ 100 mls/hr 1X ONCE IV Last administered on 08/21/18at 13:07; Start 08/21/18 at 13:00; Stop 08/21/18 at 13:29; Status DC Aspirin (Aspirin) 300 mg 1X ONCE [place] Last administered on 08/21/18at 13:09; Start 08/21/18 at 13:15; Stop 08/21/18 at 13:16; Status DC Acetaminophen (Tylenol) 650 mg PRN Q6HRS PRN PO Headaches, Temp > 101.5'; Start 08/21/18 at 13:15 Lorazepam (Ativan) 0.5 mg PRN Q6HRS PRN IV ANXIETY / AGITATION Last administered on 08/23/18at 21:19; Start 08/21/18 at 13:15 Ondansetron HCl (Zofran) 4 mg PRN Q6HRS PRN IV NAUSEA/VOMITING; Start 08/21/18 at 13:15 Famotidine (Pepcid Vial) 20 mg BID IVP Last administered on 08/24/18at 08:02; Start 08/21/18 at 21:00 Info (Icu Electrolyte Protocol) 1 ea DAILY MC Last administered on 08/23/18at 08: 38; Start 08/22/18 at 09:00 Heparin Sodium (Porcine) (Heparin Sodium) 5,000 unit Q12HR SQ Last administered on 08/21/18at 20:49; Start 08/21/18 at 14:00; Stop 08/22/18 at 06:55; Status DC Sodium Chloride (Normal Saline Flush) 3 ml QSHIFT PRN IV AFTER MEDS AND BLOOD DRAWS; Start 08/21/18 at 13:15 Acetaminophen/ Hydrocodone Bitart (Lortab 5/325) 1 tab PRN Q4HRS PRN PO MILD PAIN; Start 08/21/18 at 13:15 Morphine Sulfate (Morphine Sulfate) 2 mg PRN Q1HR PRN IV PAIN; Start 08/21/18 at 13:15; Stop 08/21/18 at 14:28; Status DC Lactulose (Lactulose) 20 gm PRN Q12HR PRN PO CONSTIPATION; Start 08/21/18 at 13: 15 Atorvastatin Calcium (Lipitor) 10 mg QHS PO Last administered on 08/23/18 21:19 ; Start 08/21/18 at 21:00 Metoprolol Succinate (Toprol Xl) 25 mg DAILY PO Last administered on 08/24/18 08:02; Start 08/22/18 at 09:00 Lisinopril (Prinivil) 2.5 mg DAILY PO Last administered on 08/24/18 08:01; Start 08/21/18 at 14:00 Furosemide (Lasix) 40 mg DAILY IVP Last administered on 08/24/18 08:01; Start 08/22/18 at 09:00 Furosemide (Lasix) 40 mg 1X ONCE IVP Last administered on 08/21/18 19:45; Start 08/21/18 at 20:00; Stop 08/21/18 at 20:01; Status DC Etomidate (Amidate) 20 mg STK-MED ONCE IV ; Start 08/21/18 at 14:01; Stop at 14:02; Status DC Rocuronium [place] (Zemuron) 50 mg STK-MED ONCE .ROUTE ; Start 08/21/18 at 14:01 ; Stop 08/21/18 at 14:02; Status DC Propofol 100 ml @ 2.205 mls/ hr CONT PRN IV SEE PROTOCOL Last administered on 08/21/18 15:53; Start 08/21/18 at 14:30; Stop 08/23/18 at 14:27; Status DC Fentanyl Citrate (Fentanyl 2ml Vial) 25 mcg PRN Q1HR PRN IV SEE COMMENTS; Start 08/21/18 at 14:30; Stop 08/23/18 at 14:27; Status DC Fentanyl Citrate (Fentanyl 2ml Vial) 50 mcg PRN Q1HR PRN IV SEE COMMENTS Last administered on 08/21/18 15:56; Start 08/21/18 at 14:30; Stop 08/23/18 at 14:27; Status DC Chlorhexidine Gluconate (Peridex) 15 ml BID MM Last administered on 08/21/18 20 :49; Start 08/21/18 at 21:00; Stop 08/22/18 at 07:41; Status DC Artificial Tears (Artificial Tears) 1 drop PRN Q1HR PRN OU DRY EYE; Start at 14:30; Stop 08/23/18 at 14:27; Status DC Morphine Sulfate (Morphine Sulfate) 2 mg PRN Q1HR PRN IV SEE COMMENTS.; Start 08/21/18 at 14:30; Stop 08/23/18 at 14:27; Status DC Morphine Sulfate (Morphine Sulfate) 4 mg PRN Q1HR PRN IV SEE COMMENTS.; Start 08/21/18 at 14:30; Stop 08/23/18 at 14:27; Status DC Norepinephrine Bitartrate 250 ml @ 1.875 mls/ hr CONT PRN IV SEE I/O RECORD Last administered on 08/22/18at 20:55; Start 08/21/18 at 15:30 Midazolam HCl 100 ml @ 5 mls/hr CONT PRN IV SEE I/O RECORD Last administered on 08/22/18at 17:55; Start 08/21/18 at 15:30; Stop 08/23/18 at 14:27; Status DC Albuterol/ Ipratropium (Duoneb) 3 ml RTQID NEB Last administered on 08/24/18at 09 :35; Start 08/21/18 at 20:00 Methylprednisolone Sodium Succinate (SOLU-Medrol 40MG VIAL) 40 mg Q12HR IV Last administered on 08/24/18at 08:01; Start 08/21/18 at 21:00 Fentanyl Citrate 30 ml @ 0 mls/hr CONT PRN PRN IV PER PROTOCOL Last administered on 08/23/18at 00:02; Start 08/21/18 at 17:45; Stop 08/23/18 at 14:27; Status DC Enoxaparin Sodium (Lovenox 40mg Syringe) 40 mg Q24H SQ Last administered on 08/24 05:18; Start 08/22/18 at 07:00 Piperacillin Sod/ Tazobactam Sod 3.375 gm/Sodium Chloride 50 ml @ 100 mls/hr Q6HRS IV Last administered on 08/24/18 05:18; Start 08/22/18 at 07:00 Nicotine (Nicoderm Cq 21mg) 1 patch DAILY TD Last administered on 08/24/18at 08: 00; Start 08/23/18 at 16:30 Active Scripts Active Atorvastatin Calcium 10 Mg Tablet 1 Tab PO DAILY Lisinopril 2.5 Mg Tablet 1 Tab PO DAILY Metoprolol Succinate ( Xl ) (Metoprolol Succinate) 25 Mg Tab.er.24h 1 Tab PO DAILY Prednisone 20 Mg Tablet 20 Mg PO DAILY 5 Days Reported No Known Medications Prior To Admisstion (Info) Each 1 Each 1X Vitals/I & O Vital Sign - Last 24 Hours 08/23/18 08/23/18 08/23/18 08/23/18 11:35 12:00 12:00 13:00 Temp 98.7 98.7 Pulse 81 70 Resp 17 16 B/P (MAP) 117/56 (76) 103/66 (78) Pulse Ox 99 94 96 O2 Delivery Ventilator Nasal Cannula Nasal Cannula Nasal Cannula O2 Flow Rate 3.0 3.0 3.0 08/23/18 08/23/18 08/23/18 08/23/18 14:00 15:00 16:00 16:00 Temp 98.7 98.7 Pulse 75 71 79 Resp 18 15 20 B/P (MAP) 109/86 (94) 113/67 (82) 120/71 (87) Pulse Ox 97 95 96 O2 Delivery Nasal Cannula Room Air Room Air Room Air O2 Flow Rate 3.0 08/23/18 08/23/18 08/23/18 08/23/18 16:03 17:00 18:00 19:00 Temp 98.5 98.5 Pulse 85 94 97 Resp 20 22 18 B/P (MAP) 119/70 (86) 112/72 (85) 103/70 (81) Pulse Ox 98 96 94 97 O2 Delivery Room Air Room Air Room Air Room Air 08/23/18 08/23/18 08/23/18 08/23/18 20:00 20:00 20:06 21:00 Pulse 104 102 Resp 16 21 B/P (MAP) 119/79 (92) 115/66 (82) Pulse Ox 98 100 96 O2 Delivery Room Air Room Air Room Air Room Air 08/23/18 08/23/18 08/24/18 08/24/18 22:00 23:03 00:00 00:02 Temp 98.8 98.8 Pulse 112 105 85 Resp 32 20 18 B/P (MAP) 96/69 (78) 102/68 (79) 107/72 (84) Pulse Ox 96 97 96 O2 Delivery Room Air Room Air Room Air Room Air 08/24/18 08/24/18 08/24/18 08/24/18 01:00 02:00 03:00 03:46 Pulse 83 79 80 Resp 24 24 B/P (MAP) 116/76 (89) 95/67 (76) 95/67 (76) Pulse Ox 98 98 97 O2 Delivery Room Air Room Air Room Air Room Air 08/24/18 08/24/18 08/24/18 08/24/18 04:06 05:00 06:00 07:00 Temp 98.4 98.5 98.4 98.5 Pulse 97 104 95 68 Resp 24 20 18 18 B/P (MAP) 98/59 (72) 98/59 (72) 120/76 (91) 122/76 (91) Pulse Ox 98 95 96 98 O2 Delivery Room Air Room Air Room Air Room Air 08/24/18 08/24/18 08/24/18 08/24/18 07:43 08:00 08:01 08:02 Pulse 70 70 68 Resp 18 B/P (MAP) 110/71 (84) 110/71 110/71 Pulse Ox 98 O2 Delivery Room Air Room Air 08/24/18 08/24/18 08/24/18 08/24/18 09:00 09:35 10:00 11:05 Temp 98.1 98.1 Pulse 108 94 100 Resp 18 18 18 B/P (MAP) 107/68 (81) 110/68 (82) 100/74 (83) Pulse Ox 97 96 93 93 O2 Delivery Room Air Room Air Room Air Room Air Intake and Output 08/23/18 08/23/18 08/24/18 15:00 23:00 07:00 Intake Total 95.56 ml 530 ml 765 ml Output Total 1282 ml 130 ml 660 ml Balance -1186.44 ml 400 ml 105 ml JOHNATHAN STEPHENSON MD Aug 24, 2018 11:14
--- NOTE | 2018-08-24 12:48 | NUR ---
SS following for discharge planning. SS reviewed pt chart. Pt is self pay pt. HCFS following for self pay status. Pt is from home and is currently on room air. SS will provide resources to pt to include $4 medication list, prescription savings card, information on [facility], and community resource guide. SS will continue to follow for discharge planning.
--- NOTE | 2018-08-24 14:00 | PDOC ---
PULMONARY PROGRESS NOTES Subjective doing well since extubation on RA Vitals Vital Signs Date Time Temp Pulse Resp B/P (MAP) Pulse Ox O2 Delivery O2 Flow Rate FiO2 08/24/18 11:52 97.7 130 24 121/71 (88) 97 Room Air 97.7 08/23/18 14:00 3.0 General: Alert, No acute distress Lungs: Clear Cardiovascular: S1, S2 Abdomen: Soft Neuro Exam: Alert Extremities: No Edema Skin: Warm Labs Laboratory Tests Test 08/23/18 08:00 08/23/18 11:44 08/23/18 14:45 08/24/18 11:44 O2 Saturation 97 % (92-99) Arterial Blood pH 7.41 (7.35-7.45) Arterial Blood pCO2 at Patient Temp 44 mmHg (35-46) Arterial Blood pO2 at Patient Temp 96 mmHg (75-108) Arterial Blood HCO3 27 mmol/L (21-28) Arterial Blood Base Excess 2 mmol/L (-3-3) FiO2 40 Glucose (Fingerstick) 107 mg/dL (70-99) 110 mg/dL (70-99) Sodium Level 145 mmol/L (136-145) Potassium Level 3.9 mmol/L (3.5-5.1) Chloride Level 105 mmol/L (98-107) Carbon Dioxide Level 29 mmol/L (21-32) Anion Gap 11 (6-14) Blood Urea Nitrogen 35 mg/dL (8-26) Creatinine 1.2 mg/dL (0.7-1.3) Estimated GFR (Cockcroft-Gault) 63.1 Glucose Level 119 mg/dL (70-99) Calcium Level 9.4 mg/dL (8.5-10.1) Laboratory Tests Test 08/23/18 14:45 08/24/18 11:44 Sodium Level 145 mmol/L (136-145) Potassium Level 3.9 mmol/L (3.5-5.1) Chloride Level 105 mmol/L (98-107) Carbon Dioxide Level 29 mmol/L (21-32) Anion Gap 11 (6-14) Blood Urea Nitrogen 35 mg/dL (8-26) Creatinine 1.2 mg/dL (0.7-1.3) Estimated GFR (Cockcroft-Gault) 63.1 Glucose Level 119 mg/dL (70-99) Calcium Level 9.4 mg/dL (8.5-10.1) Glucose (Fingerstick) 110 mg/dL (70-99) Medications Active Scripts Medications Dose Route/Sig Max Daily Dose Days Date Category Atorvastatin Calcium 10 Mg Tablet 1 Tab PO DAILY 06/28/18 Rx Lisinopril 2.5 Mg Tablet 1 Tab PO DAILY 06/28/18 Rx Metoprolol Succinate ( Xl ) (Metoprolol Succinate) 25 Mg Tab.er.24h 1 Tab PO DAILY 06/28/18 Rx Prednisone 20 Mg Tablet 20 Mg PO DAILY 5 06/28/18 Rx No Known Medications Prior To Admisstion (Info) Each 1 Each 1X 05/19/18 Reported Comments CXR 08/23 RESOLVED CHF Impression . 1. Acute hypoxemic respiratory failure, multifactorial in etiology including acute on chronic systolic congestive heart failure, and acute exacerbation of chronic obstructive pulmonary disease 2. Abnormal chest x-ray./ resolved padmini-hilar edema 3. Acute systolic congestive heart failure. 4. Acute exacerbation of chronic obstructive pulmonary disease. 5. Tobacco habituation. 6. Hypotension, questionable etiology, likely related to sedation, resolved 7. Lactic acidosis, resolved. Plan . 1. extubated 08/23, on RA 2. smoking cessation 3. Keep intake less than output. 4. dc antibiotic. normal procalcitonin 5. Solu-Medrol taper 6. Bronchodilator. 7. Lovenox for DVT prophylaxis. 8. Pepcid for stress ulcer prophylaxis. EF 35% , follow cardiology rec GARCIA KOCH MD Aug 24, 2018 14:00
--- NOTE | 2018-08-24 14:52 | PDOC ---
PROGRESS NOTES Chief Complaint Chief Complaint Acute hypoxemic respiratory failure secondary to pulmonary edema Mildly elevated troponin most likely secondary to demand ischemia Type II non-STEMI, evidence of old left bundle branch block does not seem to be an acute coronary syndrome Acute on chronic COPD exacerbation tobacco abuse Tobacco abuse Nonadherence to treatment plan Acute on chronic congestive heart failure with systolic dysfunction last EF recorded at 40-45% Moderate to severe mitral regurgitation Gait instability Plan transfer to step down unit discontinue plata reassess in the am continue with diuresis Further recommendations based on the clinical course DVT prophylaxis with heparin Pulmonology recommendations greatly appreciated encourage more ambulation with assistance given his gait imbalance hopefully discharge soon History of Present Illness History of Present Illness Patient responding to verbal stimuli, most likely will be able to extubate today Vitals Vitals Vital Signs Date Time Temp Pulse Resp B/P (MAP) Pulse Ox O2 Delivery O2 Flow Rate FiO2 08/24/18 11:52 97.7 130 24 121/71 (88) 97 Room Air 97.7 08/23/18 14:00 3.0 Physical Exam General: mild distress Heart: Regular rate Lungs: Clear Abdomen: Normal bowel sounds Extremities: No cyanosis, No edema Skin: No breakdown, No significant lesion, Other (tatoos) Labs LABS Laboratory Tests Test 08/24/18 11:44 Glucose (Fingerstick) 110 mg/dL (70-99) Assessment and Plan Assessmemt and Plan Problems Medical Problems: (1) Pulmonary edema Status: Acute Comment Review of Relevant I have reviewed the following items holly (where applicable) has been applied. Labs Laboratory Tests Test 08/23/18 08:00 08/23/18 11:44 08/23/18 14:45 08/24/18 11:44 O2 Saturation 97 % (92-99) Arterial Blood pH 7.41 (7.35-7.45) Arterial Blood pCO2 at Patient Temp 44 mmHg (35-46) Arterial Blood pO2 at Patient Temp 96 mmHg (75-108) Arterial Blood HCO3 27 mmol/L (21-28) Arterial Blood Base Excess 2 mmol/L (-3-3) FiO2 40 Glucose (Fingerstick) 107 mg/dL (70-99) 110 mg/dL (70-99) Sodium Level 145 mmol/L (136-145) Potassium Level 3.9 mmol/L (3.5-5.1) Chloride Level 105 mmol/L (98-107) Carbon Dioxide Level 29 mmol/L (21-32) Anion Gap 11 (6-14) Blood Urea Nitrogen 35 mg/dL (8-26) Creatinine 1.2 mg/dL (0.7-1.3) Estimated GFR (Cockcroft-Gault) 63.1 Glucose Level 119 mg/dL (70-99) Calcium Level 9.4 mg/dL (8.5-10.1) Laboratory Tests Test 08/24/18 11:44 Glucose (Fingerstick) 110 mg/dL (70-99) Microbiology 08/21/18 Blood Culture - Preliminary, Resulted NO GROWTH AFTER 2 DAYS 08/22/18 - Final, Resulted 08/22/18 - Final, Resulted 08/22/18 - Final, Resulted 08/22/18 Gram Stain Evaluation - Final, Resulted 08/22/18 Sputum Culture, Resulted Pending Medications Current Medications Albuterol/ Ipratropium (Duoneb) 3 ml 1X ONCE NEB Last administered on at 15:56; Start 08/21/18 at 12:30; Stop 08/21/18 at 12:33; Status DC Aspirin (Children'S Aspirin) 324 mg 1X ONCE PO ; Start 08/21/18 at 12:45; Stop 08/21/18 at 12:46; Status DC Propofol 50 ml @ As Directed STK-MED ONCE IV ; Start 08/21/18 at 12:50; Stop 08/21 at 12:51; Status DC Furosemide (Lasix) 40 mg 1X ONCE IVP Last administered on 08/21/18at 13:04; Start 08/21/18 at 13:00; Stop 08/21/18 at 13:01; Status DC Propofol (Diprivan) 200 mg 1X ONCE IV Last administered on 08/21/18at 13:00; Start 08/21/18 at 13:00; Stop 08/21/18 at 13:01; Status DC Piperacillin Sod/ Tazobactam Sod 3.375 gm/Sodium Chloride 50 ml @ 100 mls/hr 1X ONCE IV Last administered on 08/21/18at 13:07; Start 08/21/18 at 13:00; Stop 08/21/18 at 13:29; Status DC Aspirin (Aspirin) 300 mg 1X ONCE VT Last administered on 08/21/18at 13:09; Start 08/21/18 at 13:15; Stop 08/21/18 at 13:16; Status DC Acetaminophen (Tylenol) 650 mg PRN Q6HRS PRN PO Headaches, Temp > 101.5'; Start 08/21/18 at 13:15 Lorazepam (Ativan) 0.5 mg PRN Q6HRS PRN IV ANXIETY / AGITATION Last administered on 08/23/18 21:19; Start 08/21/18 at 13:15 Ondansetron HCl (Zofran) 4 mg PRN Q6HRS PRN IV NAUSEA/VOMITING; Start 08/21/18 at 13:15 Famotidine (Pepcid Vial) 20 mg BID IVP Last administered on 08/24/18 08:02; Start 08/21/18 at 21:00 Info (Icu Electrolyte Protocol) 1 ea DAILY MC Last administered on 08/23/18 08: 38; Start 08/22/18 at 09:00 Heparin Sodium (Porcine) (Heparin Sodium) 5,000 unit Q12HR SQ Last administered on 08/21/18 20:49; Start 08/21/18 at 14:00; Stop 08/22/18 at 06:55; Status DC Sodium Chloride (Normal Saline Flush) 3 ml QSHIFT PRN IV AFTER MEDS AND BLOOD DRAWS; Start 08/21/18 at 13:15 Acetaminophen/ Hydrocodone Bitart (Lortab 5/325) 1 tab PRN Q4HRS PRN PO MILD PAIN; Start 08/21/18 at 13:15 Morphine Sulfate (Morphine Sulfate) 2 mg PRN Q1HR PRN IV PAIN; Start 08/21/18 at 13:15; Stop 08/21/18 at 14:28; Status DC Lactulose (Lactulose) 20 gm PRN Q12HR PRN PO CONSTIPATION; Start 08/21/18 at 13: 15 Atorvastatin Calcium (Lipitor) 10 mg QHS PO Last administered on 08/23/18 21:19 ; Start 08/21/18 at 21:00 Metoprolol Succinate (Toprol Xl) 25 mg DAILY PO Last administered on 08/24/18 08:02; Start 08/22/18 at 09:00 Lisinopril (Prinivil) 2.5 mg DAILY PO Last administered on 4/8/19at 08:01; Start 08/21/18 at 14:00 Furosemide (Lasix) 40 mg DAILY IVP Last administered on 08/24/18 08:01; Start 08/22/18 at 09:00 Furosemide (Lasix) 40 mg 1X ONCE IVP Last administered on 08/21/18at 19:45; Start 08/21/18 at 20:00; Stop 08/21/18 at 20:01; Status DC Etomidate (Amidate) 20 mg STK-MED ONCE IV ; Start 08/21/18 at 14:01; Stop at 14:02; Status DC Rocuronium [place] (Zemuron) 50 mg STK-MED ONCE .ROUTE ; Start 08/21/18 at 14:01 ; Stop 08/21/18 at 14:02; Status DC Propofol 100 ml @ 2.205 mls/ hr CONT PRN IV SEE PROTOCOL Last administered on 08/21/18at 15:53; Start 08/21/18 at 14:30; Stop 08/23/18 at 14:27; Status DC Fentanyl Citrate (Fentanyl 2ml Vial) 25 mcg PRN Q1HR PRN IV SEE COMMENTS; Start 08/21/18 at 14:30; Stop 08/23/18 at 14:27; Status DC Fentanyl Citrate (Fentanyl 2ml Vial) 50 mcg PRN Q1HR PRN IV SEE COMMENTS Last administered on 08/21/18at 15:56; Start 08/21/18 at 14:30; Stop 08/23/18 at 14:27; Status DC Chlorhexidine Gluconate (Peridex) 15 ml BID MM Last administered on 08/21/18at 20 :49; Start 08/21/18 at 21:00; Stop 08/22/18 at 07:41; Status DC Artificial Tears (Artificial Tears) 1 drop PRN Q1HR PRN OU DRY EYE; Start at 14:30; Stop 08/23/18 at 14:27; Status DC Morphine Sulfate (Morphine Sulfate) 2 mg PRN Q1HR PRN IV SEE COMMENTS.; Start 08/21/18 at 14:30; Stop 08/23/18 at 14:27; Status DC Morphine Sulfate (Morphine Sulfate) 4 mg PRN Q1HR PRN IV SEE COMMENTS.; Start 08/21/18 at 14:30; Stop 08/23/18 at 14:27; Status DC Norepinephrine Bitartrate 250 ml @ 1.875 mls/ hr CONT PRN IV SEE I/O RECORD Last administered on 08/22/18at 20:55; Start 08/21/18 at 15:30 Midazolam HCl 100 ml @ 5 mls/hr CONT PRN IV SEE I/O RECORD Last administered on 08/22/18at 17:55; Start 08/21/18 at 15:30; Stop 08/23/18 at 14:27; Status DC Albuterol/ Ipratropium (Duoneb) 3 ml RTQID NEB Last administered on 08/24/18at 11 :40; Start 08/21/18 at 20:00 Methylprednisolone Sodium Succinate (SOLU-Medrol 40MG VIAL) 40 mg Q12HR IV Last administered on 08/24/18at 08:01; Start 08/21/18 at 21:00; Stop 08/24/18 at 14: 02; Status DC Fentanyl Citrate 30 ml @ 0 mls/hr CONT PRN PRN IV PER PROTOCOL Last administered on 08/23/18at 00:02; Start 08/21/18 at 17:45; Stop 08/23/18 at 14:27; Status DC Enoxaparin Sodium (Lovenox 40mg Syringe) 40 mg Q24H SQ Last administered on 08/24at 05:18; Start 08/22/18 at 07:00 Piperacillin Sod/ Tazobactam Sod 3.375 gm/Sodium Chloride 50 ml @ 100 mls/hr Q6HRS IV Last administered on 08/24/18 11:37; Start 08/22/18 at 07:00; Stop 08/24 at 14:01; Status DC Nicotine (Nicoderm Cq 21mg) 1 patch DAILY TD Last administered on 08/24/18at 08: 00; Start 08/23/18 at 16:30 Methylprednisolone Sodium Succinate (SOLU-Medrol 40MG VIAL) 40 mg QD IV ; Start 08/25/18 at 09:00 Active Scripts Active Atorvastatin Calcium 10 Mg Tablet 1 Tab PO DAILY Lisinopril 2.5 Mg Tablet 1 Tab PO DAILY Metoprolol Succinate ( Xl ) (Metoprolol Succinate) 25 Mg Tab.er.24h 1 Tab PO DAILY Prednisone 20 Mg Tablet 20 Mg PO DAILY 5 Days Reported No Known Medications Prior To Admisstion (Info) Each 1 Each 1X Vitals/I & O Vital Sign - Last 24 Hours 08/23/18 08/23/18 08/23/18 08/23/18 15:00 16:00 16:00 16:03 Temp 98.7 98.7 Pulse 71 79 Resp 15 20 B/P (MAP) 113/67 (82) 120/71 (87) Pulse Ox 95 96 98 O2 Delivery Room Air Room Air Room Air Room Air 08/23/18 08/23/18 08/23/18 08/23/18 17:00 18:00 19:00 20:00 Temp 98.5 98.5 Pulse 85 94 97 104 Resp 20 22 18 16 B/P (MAP) 119/70 (86) 112/72 (85) 103/70 (81) 119/79 (92) Pulse Ox 96 94 97 98 O2 Delivery Room Air Room Air Room Air Room Air 08/23/18 08/23/18 08/23/18 08/23/18 20:00 20:06 21:00 22:00 Pulse 102 112 Resp 21 32 B/P (MAP) 115/66 (82) 96/69 (78) Pulse Ox 100 96 96 O2 Delivery Room Air Room Air Room Air Room Air 08/23/18 08/24/18 08/24/18 08/24/18 23:03 00:00 00:02 01:00 Temp 98.8 98.8 Pulse 105 85 83 Resp 20 18 24 B/P (MAP) 102/68 (79) 107/72 (84) 116/76 (89) Pulse Ox 97 96 98 O2 Delivery Room Air Room Air Room Air Room Air 08/24/18 08/24/18 08/24/18 08/24/18 02:00 03:00 03:46 04:06 Temp 98.4 98.4 Pulse 79 80 97 Resp 19 24 24 B/P (MAP) 95/67 (76) 95/67 (76) 98/59 (72) Pulse Ox 98 97 98 O2 Delivery Room Air Room Air Room Air Room Air 08/24/18 08/24/18 08/24/18 08/24/18 05:00 06:00 07:00 07:43 Temp 98.5 98.5 Pulse 104 95 68 Resp 20 18 18 B/P (MAP) 98/59 (72) 120/76 (91) 122/76 (91) Pulse Ox 95 96 98 O2 Delivery Room Air Room Air Room Air Room Air 08/24/18 08/24/18 08/24/18 08/24/18 08:00 08:01 08:02 09:00 Pulse 70 70 68 108 Resp 18 18 B/P (MAP) 110/71 (84) 110/71 110/71 107/68 (81) Pulse Ox 98 97 O2 Delivery Room Air Room Air 08/24/18 08/24/18 08/24/18 08/24/18 09:35 10:00 11:05 11:40 Temp 98.1 98.1 Pulse 94 100 Resp 18 18 B/P (MAP) 110/68 (82) 100/74 (83) Pulse Ox 96 93 93 98 O2 Delivery Room Air Room Air Room Air Room Air 08/24/18 11:52 Temp 97.7 97.7 Pulse 130 Resp 24 B/P (MAP) 121/71 (88) Pulse Ox 97 O2 Delivery Room Air Intake and Output 08/23/18 08/23/18 08/24/18 15:00 23:00 07:00 Intake Total 95.56 ml 530 ml 765 ml Output Total 1282 ml 130 ml 660 ml Balance -1186.44 ml 400 ml 105 ml Nutrition Consultation Dietary Evaluation: Recommendations by RD: Decrease Calorie Intake Comments: Continue w/cardiac diet as ordered REC Ensure TID (strawberry) Expected Outcomes/Goals: PO intake to meet >75% est needs Interpretation of weight loss: >7.5% in 3 months Malnutrition Findings: Weight Status: Appropriate POP PARKS MD Aug 24, 2018 14:52
[2018-08-24] MEDS: ATORVASTATIN CALCIUM 10 MG TABLET. PO SCH (20:55)
[2018-08-25 02:15] VITALS: BP_SYST 123; BP_SYST 130; BP_DIAS 69; BP_DIAS 74
[2018-08-25 07:00] VITALS: BP 116/66
[2018-08-25] MEDS: IPRATRPIUM/ALBUTEROL 0.5/2.5MG 3 ML NEBU. NEB SCH ×2 (07:43→11:28)
[2018-08-25] MEDS: ELECTROLYTE (ICU) PROTOCOL. MC SCH (08:09)
[2018-08-25] MEDS: LISINOPRIL 5 MG TABLET. PO SCH (08:13)
[2018-08-25] MEDS: METOPROLOL SUCC 24HR ER 25 MG TAB.ER.24H. PO SCH (08:13)
[2018-08-25] MEDS: FUROSEMIDE 40 MG/4 ML VIAL. IVP SCH (08:14)
[2018-08-25] MEDS: NICOTINE 21MG PATCH. TD SCH (08:26)
--- NOTE | 2018-08-25 08:32 | PDOC ---
PULMONARY PROGRESS NOTES Subjective doing well since extubation on RA Vitals Vital Signs Date Time Temp Pulse Resp B/P (MAP) Pulse Ox O2 Delivery O2 Flow Rate FiO2 08/25/18 07:45 98 Room Air 08/25/18 07:00 97.6 61 18 116/66 (83) 97.6 General: Alert, No acute distress Lungs: Clear Cardiovascular: S1, S2 Abdomen: Soft Neuro Exam: Alert Extremities: No Edema Skin: Warm Labs Laboratory Tests Test 08/23/18 11:44 08/23/18 14:45 08/24/18 11:44 Glucose (Fingerstick) 107 mg/dL (70-99) 110 mg/dL (70-99) Sodium Level 145 mmol/L (136-145) Potassium Level 3.9 mmol/L (3.5-5.1) Chloride Level 105 mmol/L (98-107) Carbon Dioxide Level 29 mmol/L (21-32) Anion Gap 11 (6-14) Blood Urea Nitrogen 35 mg/dL (8-26) Creatinine 1.2 mg/dL (0.7-1.3) Estimated GFR (Cockcroft-Gault) 63.1 Glucose Level 119 mg/dL (70-99) Calcium Level 9.4 mg/dL (8.5-10.1) Laboratory Tests Test 08/24/18 11:44 Glucose (Fingerstick) 110 mg/dL (70-99) Medications Active Scripts Medications Dose Route/Sig Max Daily Dose Days Date Category Atorvastatin Calcium 10 Mg Tablet 1 Tab PO DAILY 06/28/18 Rx Lisinopril 2.5 Mg Tablet 1 Tab PO DAILY 06/28/18 Rx Metoprolol Succinate ( Xl ) (Metoprolol Succinate) 25 Mg Tab.er.24h 1 Tab PO DAILY 06/28/18 Rx Prednisone 20 Mg Tablet 20 Mg PO DAILY 5 06/28/18 Rx No Known Medications Prior To Admisstion (Info) Each 1 Each 1X 05/19/18 Reported Comments CXR 08/23 RESOLVED CHF Impression . 1. Acute hypoxemic respiratory failure, multifactorial in etiology including acute on chronic systolic congestive heart failure, and acute exacerbation of chronic obstructive pulmonary disease 2. Abnormal chest x-ray./ resolved padmini-hilar edema 3. Acute systolic congestive heart failure. 4. Acute exacerbation of chronic obstructive pulmonary disease. 5. Tobacco habituation. 6. Hypotension, questionable etiology, likely related to sedation, resolved 7. Lactic acidosis, resolved. Plan . 1. extubated 08/23, on RA 2. smoking cessation 3. Keep intake less than output. 4. dc antibiotic. normal procalcitonin 5. Solu-Medrol taper 6. Bronchodilator. 7. Lovenox for DVT prophylaxis. 8. Pepcid for stress ulcer prophylaxis. EF 35% , follow cardiology rec MAYA ALLISON MD Aug 25, 2018 08:32
[2018-08-25] MEDS ORDERED: methylPREDNISolone SOD SUCC PF 40 MG/ML VIAL. IV SCH (09:00)
[2018-08-25 10:50] VITALS: BP 99/61
[2018-08-25] MEDS ORDERED: METO25TA4 PO (10:54)
[2018-08-25] MEDS ORDERED: LISI2.5T PO (10:54)
[2018-08-25] MEDS ORDERED: ALBU2.5V8 INH (10:54)
[2018-08-25] MEDS ORDERED: ATOR10TA60 PO (10:54)
[2018-08-25] MEDS ORDERED: METH4TAB2 PO (10:54)
--- NOTE | 2018-08-25 10:58 | PDOC3 ---
Discharge Summary Visit Information Date of Admission: Aug 21, 2018 Date of Discharge: Aug 25, 2018 Admitting Diagnosis Comment: Acute hypoxemic respiratory failure Final Diagnosis Problems Medical Problems: (1) Pulmonary edema Status: Acute Acute hypoxemic respiratory failure secondary to pulmonary edema resolved Mildly elevated troponin most likely secondary to demand ischemia Type II non-STEMI, evidence of old left bundle branch block does not seem to be an acute coronary syndrome Acute on chronic COPD exacerbation tobacco abuse Tobacco abuse Nonadherence to treatment plan Acute on chronic congestive heart failure with systolic dysfunction last EF recorded at 40-45% Moderate to severe mitral regurgitation Gait instability Brief Hospital Course Allergies Allergies Coded Allergies Type Severity Reaction Last Updated Verified No Known Drug Allergies 05/19/18 No Vital Signs Vital Signs Date Time Temp Pulse Resp B/P (MAP) Pulse Ox O2 Delivery O2 Flow Rate FiO2 08/25/18 10:50 98.0 92 19 99/61 (74) 97 Room Air 98.0 Lab Results Laboratory Tests Test 08/23/18 11:44 08/23/18 14:45 08/24/18 11:44 Glucose (Fingerstick) 107 mg/dL (70-99) 110 mg/dL (70-99) Sodium Level 145 mmol/L (136-145) Potassium Level 3.9 mmol/L (3.5-5.1) Chloride Level 105 mmol/L (98-107) Carbon Dioxide Level 29 mmol/L (21-32) Anion Gap 11 (6-14) Blood Urea Nitrogen 35 mg/dL (8-26) Creatinine 1.2 mg/dL (0.7-1.3) Estimated GFR (Cockcroft-Gault) 63.1 Glucose Level 119 mg/dL (70-99) Calcium Level 9.4 mg/dL (8.5-10.1) Laboratory Tests Test 08/24/18 11:44 Glucose (Fingerstick) 110 mg/dL (70-99) Brief Hospital Course History and physical gathered from review of his chart and report from ER physician. Patient is currently on sedation and on mechanical ventilation. Patient is a 53-year-old gentleman with past medical history of COPD and mitral regurgitation with chronic systolic dysfunction recent ejection fraction was recorded at 40% on his last admission June of this year. The patient came to the emergency department with shortness of breath, the patient's history is was very limited due to the acuity of his presentation. He referred to the emergency department physician that he felt sweaty and that he could not catch his breath. The patient has history of [place] as per internal audit consultant and he has not follow-up due to financial constraints. The patient apparently has not been adherent to his medications which was reported to the emergency department nurses prior to his intubation. The patient is currently being seen in the ICU he is sedated and on mechanical ventilation. He does not seem to be in acute distress. He received diuresis in the emergency department after his chest x- ray showed evidence of pulmonary edema which probably explain the acuity of his presentation. We'll continue to monitor the patient will consult cardiology and pulmonary in order to help us with the care of the patient He was admitted to the intensive care unit where he had ventilatory support for 2 days. He was successfully extubated for 2019 initially had little bit of trouble with his balance but this has result. The patient unfortunately has not been adherent to his treatment plan due to financial constraints. He is supposed to start a new job hopefully in the morning and will be able to sustain himself. We'll request help from case management in order to help him with his medications. He was in good spirits to be dismissed home signs and symptoms of alarm were discussed prior to discharge the patient will be following up with resources in the community for primary care hopefully. Discharge Information Condition at Discharge: Improved Follow Up: Weeks Disposition/Orders: D/C to Home Scheduled Atorvastatin Calcium (Atorvastatin Calcium) 10 Mg Tablet, 1 TAB PO DAILY for CHF for 30 Days, #30 Ref 5 Prescribed by: POP PARKS MD on 08/25/18 1054 Info (No Known Medications Prior To Admisstion) Each, 1 EACH 1X for unknown, (Reported) Entered as Reported by: MALICK FERGUSON on 05/19/182220 Last Action: HELD on 08/21/18 1307 by POP PARKS MD Lisinopril (Lisinopril) 2.5 Mg Tablet, 1 TAB PO DAILY for 30 for 30 Days, #30 Ref 5 Prescribed by: POP PARKS MD on 08/25/18 1054 Methylprednisolone (Medrol) 4 Mg Tab.ds.pk, 1 PKG PO UD for COPD, #1 Prescribed by: POP PARKS MD on 08/25/18 1054 Metoprolol Tartrate (Metoprolol Tartrate) 25 Mg Tablet, 0.5 TAB PO BID for HTN for 30 Days, #30 Ref 5 Prescribed by: POP PARKS MD on 08/25/18 105 Prednisone (Prednisone) 20 Mg Tablet, 20 MG PO DAILY for COPD for 5 Days, #5 Prescribed by: STACEY LAKE MD on 06/28/18 100 Last Action: HELD on 08/21/18 1307 by POP PARKS MD Scheduled PRN Albuterol Sulfate (Proair Hfa) 8.5 Gm Hfa.aer.ad, 1 PUFF INH PRN Q6HRS PRN for SHORTNESS OF BREATH for 30 Days, #1 Ref 3 Prescribed by: POP PARKS MD on 08/25/18 105 Discontinued Medications Metoprolol Succinate (Metoprolol Succinate ( Xl )) 25 Mg Tab.er.24h, 1 TAB PO DAILY for CHF, #30 Ref 5 Prescribed by: STACEY LAKE MD on 06/28/18 100 Last Action: Continued on 08/21/188 by MD KASEY TOLBERT HECTOR M MD Aug 25, 2018 10:58
--- NOTE | 2018-08-25 13:33 | NUR ---
Discharge Note: FRANCE VALLADARES Discharge instructions and discharge home medications reviewed with Patient and a copy given. All questions have been answered and understanding verbalized. Patient was sent via our transportation to [facility] at the [facility] per his request. Patient stated that the senior care house he is living at has a shuttle that picks them up at the [facility].
== END 2018-08-25 13:36 | disposition home or self-care (01) | DRG 208 ==
LOC: ER 12:18 → 1 WEST ICU 13:00 → 2 NORTH 08-24 11:20
PROVIDERS: ADMIT Internal Medicine; ATTEND Internal Medicine
PROC: 0BH17EZ Insertion of Endotracheal Airway into Trachea, Via Natural or Artificial Opening (ICD-10-PCS; principal; 2018-08-21)
PROC: 5A1945Z Respiratory Ventilation, 24-96 Consecutive Hours (ICD-10-PCS; 2018-08-21)
DX: J96.21 Acute and chronic respiratory failure with hypoxia (principal); I21.A1 Myocardial infarction type 2; I50.23 Acute on chronic systolic (congestive) heart failure; J44.1 Chronic obstructive pulmonary disease with (acute) exacerbation; I42.9 Cardiomyopathy, unspecified; E87.2 Acidosis; I11.0 Hypertensive heart disease with heart failure; I95.9 Hypotension, unspecified; I25.2 Old myocardial infarction; I34.0 Nonrheumatic mitral (valve) insufficiency; E78.5 Hyperlipidemia, unspecified; F17.210 Nicotine dependence, cigarettes, uncomplicated; M19.90 Unspecified osteoarthritis, unspecified site; Z82.49 Family history of ischemic heart disease and other diseases of the circulatory system; Z91.19 Patient's noncompliance with other medical treatment and regimen; Z71.6 Tobacco abuse counseling
CPT/HCPCS: 36415; 36600; 71045; 80048; 80053; 82805; 82962; 83036; 83605; 83735; 83880; 84145; 84484; 85007; 85025; 85610; 87040; 87070; 87205; 87641; 87804; 93005; 93306; 94002; 94003; 94640; 94760; 96365; 96375; J1644; J1650; J1940; J2060; J2250; J2543; J2704; J2920; J3010; J3490; J7620; 97110; 97116; 97530; 99291-25